=== PATIENT | female | born 1930 | race Caucasian/White ===

== ENCOUNTER 2016-10-02 13:32 | Inpatient (IN) ==
--- NOTE | 2016-10-02 13:50 | Emergency Department Note ---
Disposition Clinical Impression: Colitis Disposition: Admitted As Inpatient Condition: Fair Referrals: NO,PCP [Non-Partnered Physician] - Forms: Work/School Release, ED Satisfaction Letter Time of Disposition: 15:39 Abdominal Pain HPI - General Chief Complaint: ED Abdominal Pain Stated Complaint: Back Pain/ Lower Abdominal Pain Time Seen by Provider: 10/02/16 13:49 Source: patient, EMS Mode of arrival: EMS Limitations: no limitations Nursing Notes Reviewed: Yes Vital Signs Reviewed: Yes - History of Present Illness HPI Narrative: 86-year-old who has been treated by her family doctor for UTI culture did grow Proteus sensitive to everything tested. She has right-sided flank pain that is getting progressively worse. She was treated with 3 separate antibiotics the first 2 she had a reaction to she does not able to remember exactly what their names are she thinks one of Cipro. Then use with symptoms. Pt Subjective Complaint: abdominal pain, flank pain Onset (ago): day(s) Consistency: constant Pain Severity: moderate, severe Pain Scale: 10 Quality: stabbing, aching Radiation: none Migration to: no migration Improves with: nothing Worsens with: movement Associated symptoms: Reports: nausea, vomiting, diarrhea, fever (Claims low- grade fever at home) Treatments prior to arrival: other (Antibiotics) - Related Data Home Medications Medication Instructions Recorded Confirmed Acetylcysteine 600 mg PO BID 08/08/15 08/08/15 [A-Vgrasu-q-Cysteine] Albuterol Sulfate [Albuterol 2 puff IH Q6HR PRN 08/08/15 08/08/15 Inhaler] Budesonide/Formoterol 160/4.5 2 puff IH BIDR 08/08/15 08/08/15 [Symbicort] Cholecalciferol (Vitamin D3) 2,000 unit PO DAILY 08/08/15 08/08/15 [Vitamin D] Clopidogrel [Plavix] 75 mg PO DAILY 08/08/15 08/08/15 Ferrous Sulfate 325 mg PO DAILY 08/08/15 08/08/15 Furosemide [Lasix] 20 mg PO DAILY 08/08/15 08/08/15 Ipratropium/Albuterol Neb [Duoneb] 3 ml IH Q6HR 08/08/15 08/08/15 Metoprolol [Lopressor] 50 mg PO BID 08/08/15 08/08/15 Multivitamin/Iron/Folic Acid 1 each PO DAILY 08/08/15 08/08/15 [Centrum Complete Multivit Tab] Potassium Chloride 40 meq PO DAILY 08/08/15 08/08/15 [place] Oil/[place]-3 Fatty Acids 1,000 mg PO DAILY 08/08/15 08/08/15 [Fish Oil 500 mg Softgel] Sucralfate [Carafate] 1 gm PO QIDAC 08/08/15 08/08/15 Previous Rx's Medication Instructions Recorded Lactobacillus [Culturelle] 1 each PO BID #60 cap.sprink 08/08/15 Ondansetron ODT [Zofran ODT] 4 mg SL Q6HR PRN #14 tab.rapdis 09/21/15 Nitrofurantoin (BID) [Macrobid] 100 mg PO BID #14 capsule 01/23/16 PredniSONE 10 mg PO DAILY #21 tablet 02/08/16 Allergies Allergy/AdvReac Type Severity Reaction Status Date / Time Estrogens AdvReac Anaphylaxis Verified 06/07/15 13:05 Penicillins AdvReac Anaphylaxis Verified 06/07/15 13:05 Sulfa (Sulfonamide AdvReac Anaphylaxis Verified 06/07/15 13:05 Antibiotics) Constitutional: Reports: fever. Denies: chills, weakness, weight change Eyes: Denies: eye pain, eye discharge, vision change ENT ED: Denies: ear pain, throat pain, dental pain, hearing loss, epistaxis, congestion, dysphagia Cardiovascular: Denies: chest pain, palpitations, dyspnea on exertion, edema, syncope Respiratory: Denies: cough, dyspnea, wheezes, hemoptysis, stridor Gastrointestinal: Denies: abdominal pain, nausea, vomiting, diarrhea, constipation, hematemesis, melena, hematochezia Genitourinary: Denies: dysuria, frequency, hematuria, discharge Musculoskeletal: Reports: back pain. Denies: neck pain, arthralgia, myalgia Integumentary: Denies: rash, abrasion, lesions Neurological: Denies: headache, weakness, numbness, paresthesias, confusion, abnormal gait, vertigo Psychiatric: Denies: anxiety, depression, suicidal thoughts, homicidal thoughts , auditory hallucinations, visual hallucinations Endocrine: Denies: fatigue Hematological/Lymphatic: Denies: easy bleeding, easy bruising Allergic/Immunologic: Denies: facial swelling, urticaria Abdominal Pain PMH - Past Medical History Medical history: Reports: cancer, CHF, COPD, coronary artery disease, CVA, hyperlipidemia, hypertension, myocardial infarction, osteoporosis Female Surgical History: Reports: appendectomy, cancer surgery, cholecystectomy , herniorrhaphy, hysterectomy, pacemaker/AICD 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 Psychiatric history: Reports: no psych history - Social History Smoking status: Never smoker Alcohol use: Reports: none Drug use: Reports: none Physical Exam - General Limitations: no limitations General appearance: alert - Head Head exam: atraumatic, normocephalic, normal inspection - Eye Eye exam: Present: normal appearance, PERRL, EOMI - ENT ENT exam: normal exam, normal oropharynx, mucous membranes moist - Neck Neck exam: Present: normal inspection, full ROM, trachea midline - Chest Chest inspection: Present: normal inspection, symmetric chest wall rise - Respiratory Respiratory exam: Present: normal lung sounds bilaterally - Cardiovascular Cardiovascular exam: Present: regular rate, normal rhythm, normal heart sounds - Abdominal Exam Abdominal exam: Present: soft, tenderness (Suprapubic). Absent: guarding, rebound - Extremities Exam Extremities exam: Present: normal inspection, full ROM. Absent: tenderness, pedal edema - Expanded Lower Extremity Exam Neurovascular/Tendon exam: Absent: motor deficit, sensory deficit, tendon deficit Gait: not tested/not observed - Back Exam Back exam: Present: CVA tenderness (R) - Neurological Exam Neurological exam: Present: alert, oriented X3 - Psychiatric Psychiatric exam: Present: normal affect, normal mood - Skin Skin exam: Present: warm, dry, intact, normal color Course - Consultations Consultation #1: Discussed with pharmacy concerning penicillin allergy and treatment of the colitis, Invanz has been reported with cross allergy however it is usually separable to treat. Time: 15:34 Consultation #2: I discussed the case with Dr. Grimes, admit. Time: 15:53 Vital Signs Temperature 98 F 10/02/16 13:34 Pulse Rate 63 10/02/16 13:34 Respiratory Rate 16 10/02/16 13:34 Blood Pressure 142/71 10/02/16 13:34 O2 Sat by Pulse Oximetry 98 10/02/16 13:34 Temperature 98 F 10/02/16 13:34 Pulse Rate 61 10/02/16 15:26 Respiratory Rate 16 10/02/16 15:26 Blood Pressure 130/64 10/02/16 15:26 O2 Sat by Pulse Oximetry 100 10/02/16 15:26 Oxygen Delivery Oxygen Delivery Room Air Abdominal Pain - Lab Data Lab results reviewed: Yes I reviewed the patient's lab results. Result diagrams: 10/02/16 14:01 10/02/16 14:01 Lab Results 10/02/16 10/02/16 10/02/16 Range/Units 14:01 14:01 14:30 WBC 10.9 (4.3-11.1) K/mcL RBC 3.88 (3.82-4.97) M/mcL Hgb 12.3 (11.5-15.4) g/dL Hct 37.2 (35.3-44.9) % MCV 95.9 (83.0-100.0) fL MCH 31.7 (28.0-33.3) pg MCHC 33.1 (31.6-35.5) g/dL RDW 14.1 (11.5-14.5) % Plt Count 214 (140-400) K/mcL MPV 8.9 L (9.4-12.4) fL Immature Gran % 0.6 (0-4) % Seg Neutrophils % 89.5 % Lymphocytes % 4.8 % Monocytes % 3.6 % Eosinophils % 1.2 % Basophils % 0.3 % Neutrophils # 9.7 H (1.6-8.9) K/mcL Lymphocytes # 0.5 L (0.6-4.6) K/mcL Monocytes # 0.4 (0.0-1.3) K/mcL Eosinophils # 0.1 (0.0-0.6) K/mcL Basophils # 0.0 (0.0-0.2) K/mcL Sodium 141 (136-145) mEq/L Potassium 3.7 (3.5-4.5) mEq/L Chloride 108 (98-109) mEq/L Carbon Dioxide 23 (19-29) mEq/L BUN 13 (7-20) mg/dL Creatinine 0.91 (0.57-1.11) mg/dL Est GFR ( Amer) > 60 (> 60) Est GFR (Non-Af Amer) 59 L (> 60) BUN/Creatinine Ratio 14 (6-26) Glucose 137 H (70-99) mg/dL Calculated Osmolality 294 (280-300) Calcium 8.7 (8.6-10.8) mg/dL Total Bilirubin 0.7 (0.2-1.2) mg/dL Direct Bilirubin 0.2 (0.0-0.5) mg/dL Indirect Bilirubin 0.5 (0.0-1.2) mg/dL AST 22 (5-34) Units/L ALT 24 (0-55) Units/L Alkaline Phosphatase 89 (38-126) Units/L Serum Total Protein 6.3 (6.0-8.3) g/dL Albumin 3.1 L (3.5-5.0) g/dL Globulin 3.2 (2.4-3.5) g/dL Albumin/Globulin Ratio 1.0 L (1.1-2.2) Amylase 74 (25-125) Units/L Lipase 92 H (8-78) Units/L Urine Color Kasia A (Yellow) Urine Clarity Clear (Clear) Urine pH 5.5 (5.0-8.0) pH Units Ur Specific Yeoman 1.021 (1.010-1.025) Urine Protein Trace (Neg-Trace) mg/dL Urine Glucose (UA) Normal (Normal) mg/dL Urine Ketones Trace H (Negative) mg/dL Urine Blood Negative (Negative) Urine Nitrite Positive A (Negative) Urine Bilirubin Small H (Negative) Urine Urobilinogen Normal (Normal) mg/dL Ur Leukocyte Esterase Moderate H (Negative) Urine Microscopic RBC 0-3 (0-3) per hpf Urine Microscopic WBC 3-5 H (0-3) per hpf Ur Squamous Epith Cells Few (None-Few) per lpf Calcium Oxalate Crystal Present Urine Bacteria Few (None-Few) per hpf Ur Culture Indicated? YES A (NO) - Radiology Data Radiology results reviewed: Yes I reviewed the patient's radiology results. Abdomen/Pelvis CT 10/02/16 13:48 IMPRESSION: Fluid throughout the colon with left pericolic stranding compatible with colitis. Infectious and inflammatory causes are likely ; ischemia cannot be excluded. Moderate to large hiatal hernia. D/ / Jackelyn Kelly Cha, MD / Jackelyn Kelly Cha, MD Interpreting Provider: Jackelyn Kelly Cha, MD
[2016-10-02 14:13] LABS: Basophils % 0.3 %; Eosinophils # 0.1 K/mcL (0.0-0.6); Eosinophils % 1.2 %; Hematocrit 37.2 % (35.3-44.9); Hemoglobin 12.3 g/dL (11.5-15.4); Immature Granulocytes % 0.6 % (0-4); Lymphocytes # 0.5 K/mcL (0.6-4.6); Lymphocytes % 4.8 %; Mean Corpuscular HGB Conc 33.1 g/dL (31.6-35.5); Mean Corpuscular Hemoglobin 31.7 pg (28.0-33.3); Mean Corpuscular Volume 95.9 fL (83.0-100.0); Mean Platelet Volume 8.9 fL (9.4-12.4); Monocytes # 0.4 K/mcL (0.0-1.3); Monocytes % 3.6 %; Neutrophils # 9.7 K/mcL (1.6-8.9); Platelet Count 214 K/mcL (140-400); Red Blood Count 3.88 M/mcL (3.82-4.97); Red Cell Distribution Width 14.1 % (11.5-14.5); Segmented Neutrophils % 89.5 %
[2016-10-02 14:26] LABS: Alanine Aminotransferase 24 Units/L (0-55); Albumin 3.1 g/dL (3.5-5.0); Alkaline Phosphatase 89 Units/L (38-126); Amylase 74 Units/L (25-125); Aspartate Amino Transferase 22 Units/L (5-34); BUN/Creatinine Ratio 14 (6-26); Bilirubin,Direct 0.2 mg/dL (0.0-0.5); Bilirubin,Indirect 0.5 mg/dL (0.0-1.2); Bilirubin,Total 0.7 mg/dL (0.2-1.2); Blood Urea Nitrogen 13 mg/dL (7-20); Calcium 8.7 mg/dL (8.6-10.8); Carbon Dioxide 23 mEq/L (19-29); Chloride 108 mEq/L (98-109); Globulin 3.2 g/dL (2.4-3.5); Glucose 137 mg/dL (70-99); Lipase 92 Units/L (8-78); Osmolality,Calculated 294 (280-300); Potassium 3.7 mEq/L (3.5-4.5); Sodium 141 mEq/L (136-145); Total Protein 6.3 g/dL (6.0-8.3); eGFR For African Americans > 60 (> 60); eGFR For Non-African Americans 59 (> 60)
[2016-10-02 14:49] LABS: Bilirubin,Urine Small (Negative); Blood,Urine Negative (Negative); Clarity,Urine Clear (Clear); Glucose,Urine (UA) Normal (Normal); Ketones,Urine Trace mg/dL (Negative); Leukocyte Esterase,Urine Moderate (Negative); Nitrite,Urine Positive (Negative); PH,Urine 5.5 pH Units (5.0-8.0); Protein,Urine Trace mg/dL (Neg-Trace); Specific Gravity,Urine 1.021 (1.010-1.025); Urobilinogen,Urine Normal (Normal)
[2016-10-02 14:54] LABS: Color,Urine Amber (Yellow)
[2016-10-02 15:12] LABS: Bacteria,Urine Few per hpf (None-Few); Calcium Oxalate Crystals,Urine Present; RBC,Urine 0-3 per hpf (0-3); Squamous Epithelial Cell,Urine Few per lpf (None-Few)
[2016-10-02] MEDS ORDERED: Ertapenem 1,000 MG in 0.9 % Sodium Chloride Mini Bag 100 ML IVPB STA (15:36)
[2016-10-02] MEDS ORDERED: MetroNIDAZOLE 500 MG/100 ML 500 MG/100 ML BAG IVPB ONE (15:38)
[2016-10-02] MEDS ORDERED: Naloxone 0.4 MG/ML INJ IVP PRN (17:45)
[2016-10-02] MEDS ORDERED: *HR* Metoprolol 5 MG/5 ML VIAL IVP PRN (17:52)
[2016-10-02] MEDS: 0.9 % Sodium Chloride 1,000 ML IVC SCH (18:17)
[2016-10-02] MEDS: Pantoprazole 40 MG VIAL IVP SCH (18:22)
--- NOTE | 2016-10-02 18:54 | Internal Med History&Physical ---
<Gurdeep Neves - Last Filed: 10/02/16 19:05> Date of Encounter: 10/02/16 Time of Encounter: 17:20 Assessment and Plan (1) Abdominal pain Current visit: Yes Status: Acute 2/[address] abdomen/pelvis patient clinically stable, however given numerous comorbidities and age, patient will be monitored in hospital at least over night will obtain blood cultures and urine culture continue ertapenem/flagyl for abdominal coverage tylenol for pain control as patient does not like opiates fluids at 75cc/hr for maintenance NPO for now Qualifiers: Abdominal location: generalized Qualified Code(s): R10.84 - Generalized abdominal pain (2) Urinary tract infection Current visit: Yes Status: Acute patient had dysuria and either failed outpatient antibiotics or had bad reacdtion to antibiotics urine culture and ertapenem for coverage now Qualifiers: Qualified Code(s): N39.0 - Urinary tract infection, site not specified (3) Colitis Current visit: Yes Status: Acute as above (4) Congestive heart failure Current visit: Yes Status: Acute cont home lasix iv, metoprolol convert to iv form Qualifiers: Qualified Code(s): I50.9 - Heart failure, unspecified (5) History of stroke Current visit: Yes Status: Acute cont plavix, some residual R visual field deficit (6) COPD (chronic obstructive pulmonary disease) Current visit: Yes Status: Acute cont home meds Qualifiers: Qualified Code(s): J44.9 - Chronic obstructive pulmonary disease, unspecified (7) DVT prophylaxis Current visit: Yes Status: Acute heparin q12, encourage ambulation Internal Medicine - H&P: HPI Chief complaint: abdominal pain Admitted From: Home Plans for Post Hospital Care: Home History of present illness: Ms. Sanchez is a 86 year old female hx of COPD, CHF, MA, two strokes this year, IBS presents with abdominal pain and dysuria. The abdmoinal pain has been ongoing last 2 weeks, up until 2 days ago patient also having dysuria. It is suprapubic and radiates b/l up her groins and to her back at times flank regions. She has been feeling increasingly ill the last two days. Has had dry heaving but no vomiting. She has had some chronic diarrhea, but more recently some constipation. She was feeling ill enough that she needed to come to the ED here as she has been having much decreased appetite. Of note she has also been treated for UTI in the past month, most recently ~ with cipro and penicillni to which she felt she had a bad reaction. She has had two UTIs in the past month. Past Med Surg Social Fam HX - Past Medical History Medical history: cancer, CHF, COPD, coronary artery disease, CVA, hyperlipidemia , hypertension, myocardial infarction, osteoporosis Psychiatric history: no psych history - Past Surgical History Surgical History: appendectomy, cholecystectomy - Social History Smoking Status: Never smoker Smokeless Tobacco Status: No Alcohol use: none Drug use: none Internal Medicine - H&P: Meds Acetylcysteine [R-Abmcfn-t-Cysteine] 600 mg PO BID 08/08/15 [History] Albuterol Sulfate [Albuterol Inhaler] 2 puff IH Q6HR PRN 08/08/15 [History] Budesonide/Formoterol 160/4.5 [Symbicort] 2 puff IH BIDR 08/08/15 [History] Clopidogrel [Plavix] 75 mg PO DAILY 08/08/15 [History] Ferrous Sulfate 325 mg PO DAILY 08/08/15 [History] Furosemide [Lasix] 40 mg PO BID 08/08/15 [History] Ipratropium/Albuterol Neb [Duoneb] 3 ml IH Q6HR 08/08/15 [History] Metoprolol [Lopressor] 100 mg PO BID 08/08/15 [History] Multivitamin/Iron/Folic Acid [Centrum Complete Multivit Tab] 1 tab PO DAILY 06/14 [History] Potassium Chloride 70 meq PO DAILY 08/08/15 [History] [place] Oil/[place]-3 Fatty Acids [Fish Oil 500 mg Softgel] 1,000 mg PO DAILY 08/08 [History] Sucralfate [Carafate] 1 gm PO QIDAC 08/08/15 [History] Ergocalciferol (VITAMIN D2) [Vitamin D2] 50,000 unit PO GIPSON 10/02/16 [History] Pantoprazole Sodium [Protonix] 20 mg PO DAILY 10/02/16 [History] Pravastatin Sodium [Pravachol] 20 mg PO DAILY 10/02/16 [History] Allergies azithromycin Allergy (Verified 10/02/16 16:47) Hives Calcitonin Allergy (Verified 10/02/16 16:47) Rash Iodinated Contrast Media - Oral and Allergy (Verified 10/02/16 16:47) Rash Penicillins Allergy (Verified 10/02/16 16:38) Hives Sulfa (Sulfonamide Antibiotics) Allergy (Verified 10/02/16 16:38) Hives acetaminophen [From Tylenol] Adverse Reaction (Verified 10/02/16 16:47) Hallucinating aspirin Adverse Reaction (Verified 10/02/16 16:38) See Comments TINNITUS codeine Adverse Reaction (Verified 10/02/16 16:47) Hallucinating Estrogens Adverse Reaction (Verified 10/02/16 16:38) Cramping of the Muscles morphine Adverse Reaction (Verified 10/02/16 16:47) Hallucinating Oxycodone Adverse Reaction (Verified 10/02/16 16:47) Hallucinating tramadol Adverse Reaction (Verified 10/02/16 16:47) Hallucinating All Systems PM: A 10-system review of systems was performed and is negative for pertinent findings except as documented above in the HPI. - Constitutional Constitutional: chills, no fever(s), no night sweats - EENT Eyes: no photophobia Ears: no ear discharge, no ear pain, no tinnitus Nose, mouth and throat: no dysphagia, no nasal discharge, no neck pain, no sore throat - Cardiovascular Cardiovascular ROS IM: no chest pain, no diaphoresis, no lightheadedness, no palpitations, no syncope - Respiratory Respiratory: no cough, no dyspnea, no wheezing, no excessive phlegm production - Gastrointestinal Gastrointestinal: abdominal pain, constipation, diarrhea, nausea, no hematemesis , no hematochezia, no melena, no tenesmus, no vomiting - Genitourinary Genitourinary: change in urinary stream, dysuria, flank pain (on and off), no hematuria - Musculoskeletal Musculoskeletal ROS IM: no numbness, no tingling - Integumentary Integumentary IM: no rash, no unusual bruising - Neurological Neurological ROS: no confusion, no convulsions, no focal weakness, no numbness, no tingling, no tremor(s) - Hematologic/Lymphatic Hematologic/Lymphatic: no easy bruising - Constitutional Vitals: Temp Pulse Resp BP Pulse Ox 98.2 F 61 14 138/78 100 10/02/16 17:02 10/02/16 17:02 10/02/16 17:02 10/02/16 17:02 10/02/16 17:02 General appearance: Present: A&O X 3, answers questions appropriately - Head Head exam: Present: atraumatic, normocephalic - Eye Eye exam: Present: conjuntiva pink, sclera anicteric - Neck Neck exam general surgery: Present: supple, trachea midline. Absent: lymphadenopathy - Respiratory Respiratory exam: Present: CTAB. Absent: accessory muscle use, rales, rhonchi, wheezes - Cardiovascular Cardiovascular exam: Present: RRR, +S1, +S2. Absent: diastolic murmur, gallop, rubs, systolic murmur - GI/Abdominal GI/Abdominal exam: Present: normal bowel sounds, soft, tenderness (generalized and suprapubic), no peritoneal signs. Absent: distended - Extremities Exam Extremities exam: Present: warm, radial pulses palpable and symetrical. Absent : calf tenderness, cyanotic, pedal edema - Neurological Exam Neurological exam: Present: no focal deficits. Absent: facial droop, speech deficit - Skin Skin exam: Present: dry, intact Internal Med - H&P Results - Labs CBC & Chem 7: 10/02/16 14:01 10/02/16 14:01 <Altagracia Quiñones - Last Filed: 10/02/16 20:44> Date of Encounter: 10/02/16 Internal Medicine - H&P: HPI History of present illness: Ms. Sanchez is a 86 year old female All Systems PM: A 10-system review of systems was performed and is negative for pertinent findings except as documented above in the HPI. - Constitutional Vitals: Temp Pulse Resp BP Pulse Ox 97.7 F 60 14 131/89 98 10/02/16 19:52 10/02/16 19:52 10/02/16 19:52 10/02/16 19:52 10/02/16 19:52 Internal Med - H&P Results - Labs CBC & Chem 7: 10/02/16 14:01 10/02/16 14:01 - Attending Attestation Patient was independently seen and examined at bedside. The care plan and management was discussed with the resident physician and I agree with the listed plan. Patient reported of having worsening of symptoms after initiation of her antibiotics. Will follow up cultures and empirically treat with IV abx at this time. Initiate diet in am if clinically improves. Continue IV fluids, pain control.
[2016-10-02] MEDS ORDERED: *HR* Acetylcysteine 20% 600 MG/3 ML ORAL SYRINGE PO SCH (21:00)
[2016-10-02] MEDS: Furosemide 20 MG/2 ML VIAL IVP SCH (21:02)
[2016-10-02] MEDS: Ipratropium/Albuterol Neb 3 ML IH SCH (21:45)
[2016-10-02] MEDS: Budesonide/Formoterol 160/4.5 MDI IH SCH (21:46)
[2016-10-02] MEDS: Acetaminophen 325 MG TABLET PO PRN (22:11)
[2016-10-03] MEDS: MetroNIDAZOLE 500 MG/100 ML 500 MG/100 ML BAG IVPB SCH ×4 (01:08→23:31)
[2016-10-03] MEDS: *HR* Metoprolol 5 MG/5 ML VIAL IVP SCH ×5 (02:00→23:26)
[2016-10-03] MEDS: Ipratropium/Albuterol Neb 3 ML IH SCH ×4 (03:18→20:37)
[2016-10-03] MEDS: 0.9 % Sodium Chloride 1,000 ML IVC SCH (06:30)
[2016-10-03] MEDS: *HR* Heparin 5,000 UNIT/ML VIAL SQ SCH ×2 (06:30→18:48)
[2016-10-03 06:43] LABS: Basophils % 0.3 %; Eosinophils # 0.2 K/mcL (0.0-0.6); Eosinophils % 3.2 %; Hematocrit 32.2 % (35.3-44.9); Immature Granulocytes % 0.3 % (0-4); Lymphocytes % 16.1 %; Mean Corpuscular HGB Conc 32.6 g/dL (31.6-35.5); Mean Corpuscular Hemoglobin 31.2 pg (28.0-33.3); Mean Corpuscular Volume 95.5 fL (83.0-100.0); Mean Platelet Volume 9.2 fL (9.4-12.4); Monocytes # 0.5 K/mcL (0.0-1.3); Monocytes % 8.8 %; Neutrophils # 4.3 K/mcL (1.6-8.9); Platelet Count 195 K/mcL (140-400); Red Blood Count 3.37 M/mcL (3.82-4.97); Red Cell Distribution Width 14.1 % (11.5-14.5); Segmented Neutrophils % 71.3 %
[2016-10-03 06:49] LABS: Hemoglobin 10.5 g/dL (11.5-15.4)
[2016-10-03 06:58] LABS: BUN/Creatinine Ratio 14 (6-26); Blood Urea Nitrogen 11 mg/dL (7-20); Calcium 7.6 mg/dL (8.6-10.8); Carbon Dioxide 26 mEq/L (19-29); Chloride 110 mEq/L (98-109); Glucose 108 mg/dL (70-99); Osmolality,Calculated 296 (280-300); Potassium 3.2 mEq/L (3.5-4.5); Sodium 143 mEq/L (136-145); eGFR For African Americans > 60 (> 60); eGFR For Non-African Americans > 60 (> 60)
[2016-10-03] MEDS: Pantoprazole 40 MG VIAL IVP SCH (08:39)
[2016-10-03] MEDS: Furosemide 20 MG/2 ML VIAL IVP SCH ×2 (08:39→21:22)
[2016-10-03] MEDS: D5% in 0.45% NACL w KCl 20 MEQ/1,000 ML MLS IVC SCH (08:50)
[2016-10-03] MEDS: Acetaminophen 325 MG TABLET PO PRN (10:14)
[2016-10-03] MEDS: Budesonide/Formoterol 160/4.5 MDI IH SCH ×2 (10:57→20:37)
[2016-10-03] MEDS: Acetylcysteine 10% 2 ML INHSOL IH SCH ×2 (10:58→20:37)
--- NOTE | 2016-10-03 15:29 | Internal Med Progress Note ---
Date of Encounter: 10/03/16 Time of Encounter: 10:45 - Assessment and plan (1) Abdominal pain Current Visit: Yes Status: Acute Assessment and plan: Due to colitis. Continue IV antibiotics. Clinically improving. We will advance diet to clear liquids today. Qualifiers: Abdominal location: generalized Qualified Code(s): R10.84 - Generalized abdominal pain (2) COPD (chronic obstructive pulmonary disease) Current Visit: Yes Status: Chronic Assessment and plan: Chronic. Continue albuterol inhaler when necessary. Qualifiers: COPD type: unspecified COPD Qualified Code(s): J44.9 - Chronic obstructive pulmonary disease, unspecified (3) Colitis Current Visit: Yes Status: Acute Assessment and plan: On IV antibiotics. (4) Congestive heart failure Current Visit: Yes Status: Chronic Assessment and plan: Chronic. On IV Lasix as patient was nothing by mouth. If tolerates clears, will change to by mouth Lasix. Not in acute exacerbation. Qualifiers: Congestive heart failure type: unspecified congestive heart failure type Congestive heart failure chronicity: chronic Qualified Code(s): I50.9 - Heart failure, unspecified (5) DVT prophylaxis Current Visit: Yes Status: Acute Assessment and plan: On subcutaneous heparin (6) History of stroke Current Visit: Yes Status: Acute Assessment and plan: Resume Plavix and statin. (7) Urinary tract infection Current Visit: Yes Status: Acute Assessment and plan: Patient's urine is growing gram-positive cocci. On IV antibiotics. Will follow culture results. Qualifiers: Urinary tract infection type: acute cystitis Hematuria presence: without hematuria Qualified Code(s): N30.00 - Acute cystitis without hematuria - Subjective Interval history: Patient feels much better today. Abdominal pain is improving. Has not had any bowel movements. Denies any nausea or vomiting. - Constitutional Vitals: Temp Pulse Resp BP Pulse Ox 97.9 F 60 14 106/66 95 10/03/16 11:10 10/03/16 11:10 10/03/16 11:10 10/03/16 11:10 10/03/16 11:10 General appearance: Present: cooperative, mild distress, A&O X 3, pleasant, answers questions appropriately - Eye Eye exam: Present: PERRL, conjuntiva pink, sclera anicteric Pupils: Present: PERRL - Respiratory Respiratory exam: Present: CTAB. Absent: accessory muscle use, rales, rhonchi, wheezes - Cardiovascular Cardiovascular exam: Present: RRR, +S1, +S2. Absent: diastolic murmur, gallop, rubs, systolic murmur - GI/Abdominal GI/Abdominal exam: Present: normal bowel sounds, soft, tenderness (Mild left lower quadrant), no peritoneal signs. Absent: distended - Neurological Exam Neurological exam: Present: CN II-XII intact, oriented X3, no focal deficits, strengths equal and symetr throughout. Absent: facial droop, speech deficit - Skin Skin exam: Present: dry, intact Internal Medicine: Result - Labs CBC & Chem 7: 10/03/16 06:13 10/03/16 06:13 Consult Discharge Plan - Plan Referrals: Shreyas Mera MD [Primary Care Provider] - - Attending Attestation This document has been at least partially created by [employer] recognition technology by Dr. Meadows. Errors in grammar, wording or other phrases may exist. If errors are found after the documentation is signed, they will be addressed individually in the addendum section of this document when appropriate. Medical Decision Making - MDM Narrative Medical decision making narrative: Moderate risk for complications - Lab Data Lab results reviewed: Yes I reviewed the patient's lab results. Result diagrams: 10/03/16 06:13 10/03/16 06:13 Lab Results 10/03/16 Range/Units 12:13 POC Glucose 107 H (58-89)
[2016-10-03] MEDS: Ertapenem 1,000 MG in 0.9 % Sodium Chloride Mini Bag 100 ML IVPB SCH (16:03)
--- NOTE | 2016-10-03 16:11 | ECHO - Doppler Report ---
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 Indications: Heart failure Impressions: LVEF 60%. Normal LV chamber size, wall thickness and function. Indeterminate diastolic function. Atypical septal motion consistent with paced rhythm. Normal right ventricular structure and function. No evidence of pulmonary hypertension. There is a very small pericardial effusion present. There is no echocardiographic evidence of tamponade. A device lead was visualized in the right atrium and right ventricle. No significant valvular dysfunction. Left Ventricular Wall Motion: Rest Echo Findings All wall segments showed normal motion. Findings: Study Quality * Technically adequate exam. ECG Findings * Paced rhythm. Left Ventricle * LVEF 60%. * Normal LV chamber size, wall thickness and function. * Indeterminate diastolic function. * Atypical septal motion consistent with paced rhythm. Right Ventricle * Normal right ventricular structure and function. Left Atrium * Moderately dilated left atrium. Right Atrium * Mildly dilated right atrium. Aortic Valve * Aortic valve not well visualized. * Grossly, the aortic valve does appear calcified. * Trace aortic regurgitation. * No aortic stenosis. Mitral Valve * Mild mitral annular calcification * No mitral regurgitation. * No mitral stenosis. Tricuspid Valve * Normal tricuspid valve structure. * Trace tricuspid regurgitation. * No evidence of pulmonary hypertension. Pulmonic Valve * Pulmonic valve not well visualized. * No pulmonic regurgitation. Aorta * Normally sized aortic root. Pericardium * There is a very small pericardial effusion present. * There is no echocardiographic evidence of tamponade. IVC * The IVC is not well evaluated. Device lead * A device lead was visualized in the right atrium and right ventricle. Pulmonary Artery * Normal visualized portions of the main pulmonary artery. History Hypertension Hypercholesteremia Rheumatic Fever History of CAD/PTCA Myocardial Infarction Congestive Heart Failure Pacer/ICD Implant 09/14/14 a Previous Echo was performed. Measurements: BP: 106/ 66 2D Normal Values RVIDd: 3.10 cm <2.7 cm IVSd: .80 cm 0.6 - 1.0 cm LVIDd: 5.40 cm 3.7 - 5.6 cm LVPWd: .80 cm 0.6 - 1.1 cm LVIDs: 4.90 cm 1.5 - 3.6 cm AO: 3.10 cm < 4.0 cm LA: 4.50 cm 2.0 - 4.0cm %FS: 16.90 cm >25 % LA volume: 86 Mitral Valve Peak E:1.14 m/sec Peak E' Lat Brayden:16.1 cm/s Peak E' Med Brayden:8.9 cm/s E/E' Lat Ratio:7.1 E/E' Med Ratio:12.7 Aortic Valve AI pressure Half-time: 563.00 msec Tricuspid Valve TV Regurg Peak Grad: 26.00mmHg TV Regurg Peak Brayden: 2.54m/sec Updated by Corey Gandhi DO, GLYNN, ODETTE ROB on 10/03/2016 4:06:43 PM electronically signed on 10/03/2016 4:07:08 PM with status of Final Wall Motion Mayes: 1=Normal, 2=Hypokinesis, 3=Akinesis, 4=Dyskinesis, 5=Aneurysmal, 6=Hyperkinetic, X=Not Visualized (Blank)=Missing
[2016-10-03] MEDS: Ondansetron 4 MG/2 ML VIAL IVP PRN (21:22)
[2016-10-04] MEDS: D5% in 0.45% NACL w KCl 20 MEQ/1,000 ML MLS IVC SCH ×2 (03:52→18:36)
[2016-10-04] MEDS: Ipratropium/Albuterol Neb 3 ML IH SCH ×4 (04:14→21:29)
[2016-10-04 05:08] LABS: Basophils % 0.4 %; Eosinophils # 0.2 K/mcL (0.0-0.6); Eosinophils % 3.5 %; Hematocrit 34.1 % (35.3-44.9); Hemoglobin 11.2 g/dL (11.5-15.4); Immature Granulocytes % 0.2 % (0-4); Lymphocytes # 0.9 K/mcL (0.6-4.6); Lymphocytes % 17.7 %; Mean Corpuscular HGB Conc 32.8 g/dL (31.6-35.5); Mean Corpuscular Hemoglobin 31.4 pg (28.0-33.3); Mean Corpuscular Volume 95.5 fL (83.0-100.0); Mean Platelet Volume 9.3 fL (9.4-12.4); Monocytes # 0.5 K/mcL (0.0-1.3); Monocytes % 10.3 %; Neutrophils # 3.5 K/mcL (1.6-8.9); Platelet Count 198 K/mcL (140-400); Red Blood Count 3.57 M/mcL (3.82-4.97); Segmented Neutrophils % 67.9 %
[2016-10-04 05:23] LABS: BUN/Creatinine Ratio 12 (6-26); Blood Urea Nitrogen 9 mg/dL (7-20); Calcium 7.7 mg/dL (8.6-10.8); Carbon Dioxide 26 mEq/L (19-29); Chloride 110 mEq/L (98-109); Glucose 121 mg/dL (70-99); Osmolality,Calculated 296 (280-300); Potassium 3.4 mEq/L (3.5-4.5); Sodium 143 mEq/L (136-145); eGFR For African Americans > 60 (> 60); eGFR For Non-African Americans > 60 (> 60)
[2016-10-04] MEDS: *HR* Heparin 5,000 UNIT/ML VIAL SQ SCH ×2 (05:38→18:36)
[2016-10-04] MEDS: *HR* Metoprolol 5 MG/5 ML VIAL IVP SCH ×2 (05:38→12:24)
[2016-10-04] MEDS: Budesonide/Formoterol 160/4.5 MDI IH SCH ×2 (07:38→21:29)
[2016-10-04] MEDS: Acetylcysteine 10% 2 ML INHSOL IH SCH ×2 (08:04→21:29)
[2016-10-04] MEDS ORDERED: Vancomycin 1,250 MG in D5% in Water 250 ML IVPB SCH (09:00)
[2016-10-04] MEDS: Furosemide 20 MG/2 ML VIAL IVP SCH (09:17)
[2016-10-04] MEDS: Pantoprazole 40 MG VIAL IVP SCH (09:17)
[2016-10-04] MEDS: MetroNIDAZOLE 500 MG/100 ML 500 MG/100 ML BAG IVPB SCH ×3 (09:18→23:55)
[2016-10-04] MEDS: Ondansetron 4 MG/2 ML VIAL IVP PRN (15:28)
[2016-10-04] MEDS: Ertapenem 1,000 MG in 0.9 % Sodium Chloride Mini Bag 100 ML IVPB SCH (15:31)
[2016-10-04] MEDS: Nitrofurantoin (BID) 100 MG CAPSULE PO SCH (15:32)
--- NOTE | 2016-10-04 16:25 | Internal Med Progress Note ---
Date of Encounter: 10/04/16 Time of Encounter: 09:00 - Assessment and plan (1) Abdominal pain Current Visit: Yes Status: Acute Assessment and plan: Due to acute colitis. Improving. Will advance diet today. Continue supportive care with pain medications. Qualifiers: Abdominal location: left lower quadrant Qualified Code(s): R10.32 - Left lower quadrant pain (2) COPD (chronic obstructive pulmonary disease) Current Visit: Yes Status: Chronic Assessment and plan: Not in acute exacerbation. Continue albuterol inhaler Qualifiers: COPD type: unspecified COPD Qualified Code(s): J44.9 - Chronic obstructive pulmonary disease, unspecified (3) Colitis Current Visit: Yes Status: Acute Assessment and plan: Continue IV antibiotics. (4) Congestive heart failure Current Visit: Yes Status: Chronic Assessment and plan: Change Lasix to by mouth. Not in acute failure. Qualifiers: Congestive heart failure type: unspecified congestive heart failure type Congestive heart failure chronicity: chronic Qualified Code(s): I50.9 - Heart failure, unspecified (5) DVT prophylaxis Current Visit: Yes Status: Acute (6) History of stroke Current Visit: Yes Status: Acute (7) Urinary tract infection Current Visit: Yes Status: Acute Assessment and plan: Patient's urine culture is growing staph epidermidis. Most likely contaminant. However patient was having dysuria and this is the only organism that has been identified. Will treat with short course of Macrobid. Patient is also on ertapenem which should cover gram-negative bacteria. Qualifiers: Urinary tract infection type: acute cystitis Hematuria presence: without hematuria Qualified Code(s): N30.00 - Acute cystitis without hematuria - Subjective Interval history: Lower left quadrant Abdominal pain is intermittent. Feels hungry. No fever, chills reported overnight. Also complains of constipation. - Constitutional Vitals: Temp Pulse Resp BP Pulse Ox 97.3 F L 64 17 132/85 99 10/04/16 11:57 10/04/16 11:57 10/04/16 11:57 10/04/16 11:57 10/04/16 11:57 General appearance: Present: cooperative, mild distress, A&O X 3, pleasant, answers questions appropriately - Respiratory Respiratory exam: Present: CTAB. Absent: accessory muscle use, rales, rhonchi, wheezes - Cardiovascular Cardiovascular exam: Present: RRR, +S1, +S2. Absent: diastolic murmur, gallop, rubs, systolic murmur - GI/Abdominal GI/Abdominal exam: Present: normal bowel sounds, soft, tenderness (Mild left lower quadrant), no peritoneal signs. Absent: distended - Extremities Exam Extremities exam: Present: full ROM, warm, radial pulses palpable and symetrical. Absent: calf tenderness, cyanotic, pedal edema - Neurological Exam Neurological exam: Present: oriented X3, no focal deficits. Absent: facial droop, speech deficit Internal Medicine: Result - Labs CBC & Chem 7: 10/04/16 04:05 10/04/16 04:05 Labs: Short CBC 10/04/16 Range/Units 04:05 WBC 5.1 (4.3-11.1) K/mcL Hgb 11.2 L (11.5-15.4) g/dL Hct 34.1 L (35.3-44.9) % Plt Count 198 (140-400) K/mcL Neutrophils # 3.5 (1.6-8.9) K/mcL BMP 10/04/16 04:05 Sodium 143 Potassium 3.4 L Chloride 110 H Carbon Dioxide 26 BUN 9 Creatinine 0.77 Glucose 121 H Calcium 7.7 L - VTE Documentation of Mechanical Device: Intermittent pneumatic compression device Consult Discharge Plan - Plan Referrals: Shreyas Mera MD [Primary Care Provider] - - Attending Attestation This document has been at least partially created by [employer] voice recognition technology by Dr. Meadows. Errors in grammar, wording or other phrases may exist. If errors are found after the documentation is signed, they will be addressed individually in the addendum section of this document when appropriate. Medical Decision Making - MDM Narrative Medical decision making narrative: Moderate risk for complications - Lab Data Lab results reviewed: Yes I reviewed the patient's lab results. Result diagrams: 10/04/16 04:05 10/04/16 04:05 Lab Results 10/03/16 10/03/16 10/04/16 Range/Units 12:13 17:42 00:05 WBC (4.3-11.1) K/mcL RBC (3.82-4.97) M/mcL Hgb (11.5-15.4) g/dL Hct (35.3-44.9) % MCV (83.0-100.0) fL MCH (28.0-33.3) pg MCHC (31.6-35.5) g/dL RDW (11.5-14.5) % Plt Count (140-400) K/mcL MPV (9.4-12.4) fL Immature Gran % (0-4) % Seg Neutrophils % % Lymphocytes % % Monocytes % % Eosinophils % % Basophils % % Neutrophils # (1.6-8.9) K/mcL Lymphocytes # (0.6-4.6) K/mcL Monocytes # (0.0-1.3) K/mcL Eosinophils # (0.0-0.6) K/mcL Basophils # (0.0-0.2) K/mcL Sodium (136-145) mEq/L Potassium (3.5-4.5) mEq/L Chloride (98-109) mEq/L Carbon Dioxide (19-29) mEq/L BUN (7-20) mg/dL Creatinine (0.57-1.11) mg/dL Est GFR ( Amer) (> 60) Est GFR (Non-Af Amer) (> 60) BUN/Creatinine Ratio (6-26) Glucose (70-99) mg/dL POC Glucose 107 H 102 H 119 H (58-89) Calculated Osmolality (280-300) Calcium (8.6-10.8) mg/dL 10/04/16 10/04/16 10/04/16 Range/Units 04:05 04:05 05:42 WBC 5.1 (4.3-11.1) K/mcL RBC 3.57 L (3.82-4.97) M/mcL Hgb 11.2 L (11.5-15.4) g/dL Hct 34.1 L (35.3-44.9) % MCV 95.5 (83.0-100.0) fL MCH 31.4 (28.0-33.3) pg MCHC 32.8 (31.6-35.5) g/dL RDW 14.0 (11.5-14.5) % Plt Count 198 (140-400) K/mcL MPV 9.3 L (9.4-12.4) fL Immature Gran % 0.2 (0-4) % Seg Neutrophils % 67.9 % Lymphocytes % 17.7 % Monocytes % 10.3 % Eosinophils % 3.5 % Basophils % 0.4 % Neutrophils # 3.5 (1.6-8.9) K/mcL Lymphocytes # 0.9 (0.6-4.6) K/mcL Monocytes # 0.5 (0.0-1.3) K/mcL Eosinophils # 0.2 (0.0-0.6) K/mcL Basophils # 0.0 (0.0-0.2) K/mcL Sodium 143 (136-145) mEq/L Potassium 3.4 L (3.5-4.5) mEq/L Chloride 110 H (98-109) mEq/L Carbon Dioxide 26 (19-29) mEq/L BUN 9 (7-20) mg/dL Creatinine 0.77 (0.57-1.11) mg/dL Est GFR ( Amer) > 60 (> 60) Est GFR (Non-Af Amer) > 60 (> 60) BUN/Creatinine Ratio 12 (6-26) Glucose 121 H (70-99) mg/dL POC Glucose 143 H (58-89) Calculated Osmolality 296 (280-300) Calcium 7.7 L (8.6-10.8) mg/dL
[2016-10-04] MEDS: Furosemide 20 MG TABLET PO SCH (18:35)
[2016-10-05] MEDS: Ipratropium/Albuterol Neb 3 ML IH SCH ×2 (03:49→11:36)
[2016-10-05] MEDS: *HR* Heparin 5,000 UNIT/ML VIAL SQ SCH (05:42)
[2016-10-05] MEDS: D5% in 0.45% NACL w KCl 20 MEQ/1,000 ML MLS IVC SCH (07:47)
[2016-10-05] MEDS: MetroNIDAZOLE 500 MG/100 ML 500 MG/100 ML BAG IVPB SCH (07:58)
[2016-10-05] MEDS: Pantoprazole 40 MG VIAL IVP SCH (07:59)
[2016-10-05] MEDS: Nitrofurantoin (BID) 100 MG CAPSULE PO SCH (08:01)
[2016-10-05] MEDS: Furosemide 20 MG TABLET PO SCH (08:04)
[2016-10-05 10:33] VITALS: BP 126/75
--- NOTE | 2016-10-05 10:54 | Discharge Summary ---
Date of Encounter: 10/05/16 Time of Encounter: 10:30 - Discharge Diagnosis (1) Colitis Priority: Primary Status: Acute (2) Abdominal pain Priority: Secondary Status: Acute Qualifiers: Abdominal location: left lower quadrant Qualified Code(s): R10.32 - Left lower quadrant pain (3) COPD (chronic obstructive pulmonary disease) Priority: Secondary Status: Chronic Qualifiers: COPD type: unspecified COPD Qualified Code(s): J44.9 - Chronic obstructive pulmonary disease, unspecified (4) Congestive heart failure Priority: Secondary Status: Chronic Qualifiers: Congestive heart failure type: unspecified congestive heart failure type Congestive heart failure chronicity: chronic Qualified Code(s): I50.9 - Heart failure, unspecified (5) DVT prophylaxis Priority: Secondary Status: Acute (6) History of stroke Priority: Secondary Status: Acute (7) Urinary tract infection Priority: Secondary Status: Acute Qualifiers: Urinary tract infection type: acute cystitis Hematuria presence: without hematuria Qualified Code(s): N30.00 - Acute cystitis without hematuria - Discharge Medications Prescriptions: Metoclopramide [Reglan] 5 mg PO Q6HR PRN #30 tablet PRN Reason: Nausea Levofloxacin [Levaquin] 500 mg PO DAILY #7 tablet MetroNIDAZOLE [Flagyl] 500 mg PO TID #14 tablet Nitrofurantoin (BID) [Macrobid] 100 mg PO BIDWM #6 capsule Home Medications: Acetylcysteine [V-Kqjmpu-a-Cysteine] 600 mg PO BID 08/08/15 [History] Albuterol Sulfate [Albuterol Inhaler] 2 puff IH Q6HR PRN 08/08/15 [History] Budesonide/Formoterol 160/4.5 [Symbicort] 2 puff IH BIDR 08/08/15 [History] Clopidogrel [Plavix] 75 mg PO DAILY 08/08/15 [History] Ferrous Sulfate 325 mg PO DAILY 08/08/15 [History] Furosemide [Lasix] 40 mg PO BID 08/08/15 [History] Ipratropium/Albuterol Neb [Duoneb] 3 ml IH Q6HR 08/08/15 [History] Metoprolol [Lopressor] 100 mg PO BID 08/08/15 [History] Multivitamin/Iron/Folic Acid [Centrum Complete Multivit Tab] 1 tab PO DAILY 06/14 [History] Potassium Chloride 70 meq PO DAILY 08/08/15 [History] [place] Oil/[place]-3 Fatty Acids [Fish Oil 500 mg Softgel] 1,000 mg PO DAILY 08/08 [History] Sucralfate [Carafate] 1 gm PO QIDAC 08/08/15 [History] Ergocalciferol (VITAMIN D2) [Vitamin D2] 50,000 unit PO GIPSON 10/02/16 [History] Pantoprazole Sodium [Protonix] 20 mg PO DAILY 10/02/16 [History] Pravastatin Sodium [Pravachol] 20 mg PO DAILY 10/02/16 [History] Levofloxacin [Levaquin] 500 mg PO DAILY #7 tablet 10/05/16 [Rx] Metoclopramide [Reglan] 5 mg PO Q6HR PRN #30 tablet 10/05/16 [Rx] MetroNIDAZOLE [Flagyl] 500 mg PO TID #14 tablet 10/05/16 [Rx] Nitrofurantoin (BID) [Macrobid] 100 mg PO BIDWM #6 capsule 10/05/16 [Rx] Allergies/Adverse Reactions: Allergies azithromycin Allergy (Verified 10/02/16 16:47) Hives Calcitonin Allergy (Verified 10/02/16 16:47) Rash Iodinated Contrast Media - Oral and Allergy (Verified 10/02/16 16:47) Rash Penicillins Allergy (Verified 10/02/16 16:38) Hives Sulfa (Sulfonamide Antibiotics) Allergy (Verified 10/02/16 16:38) Hives acetaminophen [From Tylenol] Adverse Reaction (Verified 10/02/16 16:47) Hallucinating aspirin Adverse Reaction (Verified 10/02/16 16:38) See Comments TINNITUS codeine Adverse Reaction (Verified 10/02/16 16:47) Hallucinating Estrogens Adverse Reaction (Verified 10/02/16 16:38) Cramping of the Muscles morphine Adverse Reaction (Verified 10/02/16 16:47) Hallucinating Oxycodone Adverse Reaction (Verified 10/02/16 16:47) Hallucinating tramadol Adverse Reaction (Verified 10/02/16 16:47) Hallucinating Date of admission: 10/03/16 11:55 Primary care physician: Shreyas Mera MD Consults: 10/04/16 08:46 Consult to Occupational Therapy [CONS] Routine Comment: Evaluate, develop and implement POC Consult to Physical Therapy [CONS] Routine Comment: Evaluate, develop and implement POC Discharging clinician: Gabbi Meadows Anticipated date of discharge: 10/05/16 - Patient Status Disposition: Home Health Service Condition: Good Functional capacity at discharge: uses cane/walker Overall status at discharge: patient is progressing back to baseline - Discharge Instructions Instructions: Urinary Tract Infection in Women (DC) Follow Up With: Shreyas Mera MD [Primary Care Provider] - 10/12/16 9:45 am (in 1 week) Hospital course: Ms. Sanchez is a 86 year old female patient who has history of previous stroke, congestive heart failure, COPD was admitted here with acute colitis and lower abdominal pain. She was treated with intravenous antibiotics for this. She has slowly improved and is now tolerating full liquid diet well. Her abdominal pain is improving. She did not have any leukocytosis or signs of sepsis. She does not have any diarrhea. At this time she is stable to be discharged home on oral antibiotics to complete treatment course. She was evaluated by physical therapy and recommended placement to retirement facility. However patient has refused this and wishes to go home. Patient already has home health that arranged. She does continue to have heartburn and nausea. She is on PPI and Carafate and I will start her on Reglan as needed for nausea. She also had dysuria on presentation and her urine culture was positive for staph epidermidis. Although this is most likely a contaminant, given the symptoms that the patient presented with, I will treat this with a short course of Macrobid. She will also complete antibiotic course for her colitis. - Time Spent with Patient Total time spent providing and/or coordinating discharge services: Greater than 30 minutes (35 min) - Constitutional Vitals: Temp Pulse Resp BP Pulse Ox 98.2 F 62 17 126/75 98 10/05/16 10:31 10/05/16 10:31 10/05/16 10:31 10/05/16 10:31 10/05/16 10:31 General appearance: Present: cooperative, A&O X 3, pleasant, no acute distress, answers questions appropriately - Respiratory Respiratory exam: Present: CTAB. Absent: accessory muscle use, rales, rhonchi, wheezes - Cardiovascular Cardiovascular exam: Present: RRR, +S1, +S2. Absent: diastolic murmur, gallop, rubs, systolic murmur - GI/Abdominal GI/Abdominal exam: Present: normal bowel sounds, soft, no peritoneal signs. Absent: distended, tenderness - Extremities Exam Extremities exam: Present: warm, radial pulses palpable and symetrical. Absent : calf tenderness, cyanotic, pedal edema - Neurological Exam Neurological exam: Present: CN II-XII intact, oriented X3, no focal deficits. Absent: facial droop, speech deficit - VTE Documentation of Mechanical Device: Intermittent pneumatic compression device - Attending Attestation This document has been at least partially created by [employer] recognition technology by Dr. Meadows. Errors in grammar, wording or other phrases may exist. If errors are found after the documentation is signed, they will be addressed individually in the addendum section of this document when appropriate.
--- NOTE | 2016-10-05 11:11 | Physician Discharge Referral ---
Home Health/Hosp Referral Info Transfer to: Home Health Provider in Charge Post Discharge: PCP - Diagnosis (1) Colitis Priority: Primary Status: Acute (2) Abdominal pain Priority: Secondary Status: Acute (3) COPD (chronic obstructive pulmonary disease) Priority: Secondary Status: Chronic (4) Congestive heart failure Priority: Secondary Status: Chronic (5) DVT prophylaxis Priority: Secondary Status: Acute (6) History of stroke Priority: Secondary Status: Acute (7) Urinary tract infection Priority: Secondary Status: Acute - Respiratory Orders Smoking Cessation: Smoking cessation has been advised. For more information, call the [place] Tobacco Quit Line at 9-169-DQSN-NOW. - Diet/Nutrition Diet/Nutrition Orders: Mechanical Soft - Activity Activity Orders: Walker - Services Needed Following services are medically necessary services: Nursing, Home Health Aide, Physical Therapy, Occupational Therapy - Transfer Medications Prescriptions: Metoclopramide [Reglan] 5 mg PO Q6HR PRN #30 tablet PRN Reason: Nausea Levofloxacin [Levaquin] 500 mg PO DAILY #7 tablet MetroNIDAZOLE [Flagyl] 500 mg PO TID #14 tablet Nitrofurantoin (BID) [Macrobid] 100 mg PO BIDWM #6 capsule Home Medications: Acetylcysteine [J-Kgzcpe-k-Cysteine] 600 mg PO BID 08/08/15 [History] Albuterol Sulfate [Albuterol Inhaler] 2 puff IH Q6HR PRN 08/08/15 [History] Budesonide/Formoterol 160/4.5 [Symbicort] 2 puff IH BIDR 08/08/15 [History] Clopidogrel [Plavix] 75 mg PO DAILY 08/08/15 [History] Ferrous Sulfate 325 mg PO DAILY 08/08/15 [History] Furosemide [Lasix] 40 mg PO BID 08/08/15 [History] Ipratropium/Albuterol Neb [Duoneb] 3 ml IH Q6HR 08/08/15 [History] Metoprolol [Lopressor] 100 mg PO BID 08/08/15 [History] Multivitamin/Iron/Folic Acid [Centrum Complete Multivit Tab] 1 tab PO DAILY 06/14 [History] Potassium Chloride 70 meq PO DAILY 08/08/15 [History] [place] Oil/[place]-3 Fatty Acids [Fish Oil 500 mg Softgel] 1,000 mg PO DAILY 08/08 [History] Sucralfate [Carafate] 1 gm PO QIDAC 08/08/15 [History] Ergocalciferol (VITAMIN D2) [Vitamin D2] 50,000 unit PO GIPSON 10/02/16 [History] Pantoprazole Sodium [Protonix] 20 mg PO DAILY 10/02/16 [History] Pravastatin Sodium [Pravachol] 20 mg PO DAILY 10/02/16 [History] Levofloxacin [Levaquin] 500 mg PO DAILY #7 tablet 10/05/16 [Rx] Metoclopramide [Reglan] 5 mg PO Q6HR PRN #30 tablet 10/05/16 [Rx] MetroNIDAZOLE [Flagyl] 500 mg PO TID #14 tablet 10/05/16 [Rx] Nitrofurantoin (BID) [Macrobid] 100 mg PO BIDWM #6 capsule 10/05/16 [Rx] Allergies/Adverse Reactions: Allergies azithromycin Allergy (Verified 10/02/16 16:47) Hives Calcitonin Allergy (Verified 10/02/16 16:47) Rash Iodinated Contrast Media - Oral and Allergy (Verified 10/02/16 16:47) Rash Penicillins Allergy (Verified 10/02/16 16:38) Hives Sulfa (Sulfonamide Antibiotics) Allergy (Verified 10/02/16 16:38) Hives acetaminophen [From Tylenol] Adverse Reaction (Verified 10/02/16 16:47) Hallucinating aspirin Adverse Reaction (Verified 10/02/16 16:38) See Comments TINNITUS codeine Adverse Reaction (Verified 10/02/16 16:47) Hallucinating Estrogens Adverse Reaction (Verified 10/02/16 16:38) Cramping of the Muscles morphine Adverse Reaction (Verified 10/02/16 16:47) Hallucinating Oxycodone Adverse Reaction (Verified 10/02/16 16:47) Hallucinating tramadol Adverse Reaction (Verified 10/02/16 16:47) Hallucinating Certification: Further, I certify that my clinical findings support that this patient is homebound (i.e. absences from home require considerable and taxing effort and are for medical reasons or restorationism services or infrequently or short duration when for other reasons) because: Homebound Reason: Patient requires assistance of a person or device to safely leave home, Leaving home requires considerable and taxing effort due to condition Attestation: My signature below is to certify that this patient is under my care and that I, or nurse practitioner, or a physician's equity sales assistant working with me, has a face-to -face encounter with this patient.
[2016-10-05] MEDS: Budesonide/Formoterol 160/4.5 MDI IH SCH (11:36)
[2016-10-05] MEDS: Acetylcysteine 10% 2 ML INHSOL IH SCH (11:36)
[2016-10-05] MEDS ORDERED: Aminoglycoside Consult 1 EACH MC ONE (14:00)
== END 2016-10-05 14:01 | disposition home health service (06) | DRG 392 ==
LOC: 3ANU 13:32 → EMEROO 13:32 → 3ANU 16:39
PROVIDERS: ADMIT Internal Medicine; ATTEND Internal Medicine

== ENCOUNTER 2017-02-28 23:37 | Inpatient (IN) ==
--- NOTE | 2017-03-01 02:03 | Emergency Department Note ---
Disposition Clinical Impression: Left hip pain Lumbar compression fracture Qualifiers: Encounter type: initial encounter Fracture type: closed Qualified Code(s): S32.000A - Wedge compression fracture of unspecified lumbar vertebra, initial encounter for closed fracture Disposition: Admitted As Inpatient Condition: Good Time of Disposition: 04:43 Fall HPI - General Chief Complaint: ED Fall Stated Complaint: fall/lower back pain and right hip Time Seen by Provider: 03/01/17 00:45 Source: patient Nursing Notes Reviewed: Yes Vital Signs Reviewed: Yes - History of Present Illness Pt Subjective Complaint: fall Onset (ago): hour(s) Fall From: standing Fall Witnessed: no Place Fall Occurred: home Loss of Consciousness: none Prolonged Down Time?: no Symptoms Prior to Fall: other (exhausted legs) Context: other (increase amount of walking this week) Location of injury: back, hip Severity: none Associated symptoms (after fall): Reports: neck pain, other (bacl [aom ) - Related Data Home Medications Medication Instructions Recorded Confirmed Albuterol Sulfate [Albuterol 2 puff IH Q6HR PRN 08/08/15 02/20/17 Inhaler] Budesonide/Formoterol 160/4.5 2 puff IH BIDR 08/08/15 02/20/17 [Symbicort] Clopidogrel [Plavix] 75 mg PO DAILY 08/08/15 02/20/17 Ferrous Sulfate 325 mg PO DAILY 08/08/15 02/20/17 Furosemide [Lasix] 40 mg PO BID 08/08/15 02/20/17 Metoprolol [Lopressor] 50 mg PO BID 08/08/15 02/20/17 Multivitamin/Iron/Folic Acid 1 tab PO DAILY 08/08/15 02/20/17 [Centrum Complete Multivit Tab] Potassium Chloride 70 meq PO DAILY 08/08/15 02/20/17 [place] Oil/[place]-3 Fatty Acids 1,000 mg PO DAILY 08/08/15 02/20/17 [Fish Oil 500 mg Softgel] Sucralfate [Carafate] 1 gm PO QIDAC 08/08/15 02/20/17 Ergocalciferol (VITAMIN D2) 50,000 unit PO GIPSON 10/02/16 02/20/17 [Vitamin D2] Pantoprazole Sodium [Protonix] 20 mg PO DAILY 10/02/16 02/20/17 Pravastatin Sodium [Pravachol] 20 mg PO DAILY 10/02/16 02/20/17 Previous Rx's Medication Instructions Recorded Metoclopramide [Reglan] 5 mg PO Q6HR PRN #30 tablet 10/05/16 Allergies Allergy/AdvReac Type Severity Reaction Status Date / Time azithromycin Allergy Hives Verified 02/28/17 23:41 Calcitonin Allergy Rash Verified 02/28/17 23:41 Iodinated Contrast- Oral and Allergy Rash Verified 02/28/17 23:41 IV Dye [Iodinated Contrast Media - Oral and] Penicillins Allergy Hives Verified 02/28/17 23:41 Sulfa (Sulfonamide Allergy Hives Verified 02/28/17 23:41 Antibiotics) aspirin AdvReac See Verified 02/28/17 23:41 Comments codeine AdvReac Hallucinati Verified 02/28/17 23:41 ng Estrogens AdvReac Cramping Verified 02/28/17 23:41 of the Muscles morphine AdvReac Hallucinati Verified 02/28/17 23:41 ng Oxycodone AdvReac Hallucinati Verified 02/28/17 23:41 ng tramadol AdvReac Hallucinati Verified 02/28/17 23:41 ng All systems ED: reviewed and negative except as stated. Constitutional: Denies: fever, chills Eyes: Denies: eye pain ENT ED: Denies: ear pain Cardiovascular: Denies: chest pain Respiratory: Denies: dyspnea Gastrointestinal: Denies: abdominal pain, nausea, vomiting Genitourinary: Denies: dysuria Musculoskeletal: Reports: as per HPI Integumentary: Denies: rash Neurological: Denies: headache, weakness, numbness, paresthesias Psychiatric: Denies: anxiety Endocrine: Denies: fatigue Hematological/Lymphatic: Denies: easy bleeding Allergic/Immunologic: Denies: facial swelling Fall PMH - Past Medical History Medical history: Reports: cancer, CHF, COPD, coronary artery disease, CVA, DVT, diabetes, hyperlipidemia, hypertension, myocardial infarction, osteoporosis, renal disease, other Surgical history: Reports: appendectomy, cholecystectomy Psychiatric history: Reports: no psych history 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 Absent: respiratory distress - Cardiovascular Cardiovascular exam: Present: regular rate, normal rhythm - Abdominal Exam Abdominal exam: Present: soft. Absent: distention, guarding, rebound - Extremities Exam Extremities exam: Present: normal inspection, normal capillary refill - Expanded Lower Extremity Exam Hip/Pelvis exam: Present: tenderness. Absent: deformity, external rotation, internal rotation, shortening Upper leg exam: Present: normal inspection, full ROM. Absent: tenderness Knee exam: Present: normal inspection, full ROM. Absent: tenderness Lower leg exam: Present: normal inspection, full ROM. Absent: tenderness Ankle exam: Present: normal inspection, full ROM. Absent: tenderness Foot/toe exam: Present: normal inspection, full ROM. Absent: tenderness Neurovascular/Tendon exam: Present: normal capillary refill. Absent: pulse deficit, motor deficit, sensory deficit, tendon deficit Gait: not tested/not observed - Back Exam Back exam: Absent: full ROM (active passive ROM limited due to pain) - Neurological Exam Neurological exam: Present: alert, oriented X3 - Psychiatric Psychiatric exam: Present: normal affect, normal mood - Skin Skin exam: Present: warm, dry, intact, normal color. Absent: rash, cyanosis, diaphoresis Course Course Narrative: Patient arrives via wheelchair from private vehicle from home with a reported mechanical fall. She is accompanied by her niece who assists with history. Patient was at home standing and had fallen. Patient at least describe her legs being more tired after this week, and describes the patient has been walking or this week. Patient and niece both deny any injury to head or neck, loss of consciousness, confusion, vomiting, near syncopal symptoms. Patient complains of left hip pain, back pain. Triage vitals within normal limits. Patient seen and examined. She is in no acute distress, does not look toxic. Normal distal pulses. No evidence to suggest trauma to upper extremities. Patient has left hip pain, otherwise normal lower extremity exams. Patient states that it hurts for her to sit up, limited range of motion of lumbar spine. No gross focal neurological deficits. Patient has requested Tylenol for pain. Left hip x-ray were was ordered upon patient's arrival to the exam room, shows no evidence of fractures. Patient was discussed with Dr. German, who agreed for decision to admit for pain control and therapy consult. He also advised patient will likely need MRI for evaluation of occult fracture. We will discuss patient with hospitalist. - Reevaluation(s) Reevaluation #1: Discussed patient with hospitalist Dr. Yo, who agreed to accept patient, however he did request CT of lumbar spine, for further evaluation of patient's back pain. On reexamination patient is also complaining of neck pain. Will order CT cervical spine. Time: 01:58 Vital Signs Temperature 97.7 F 02/28/17 23:41 Pulse Rate 67 02/28/17 23:41 Respiratory Rate 20 02/28/17 23:41 Blood Pressure 152/71 02/28/17 23:41 O2 Sat by Pulse Oximetry 97 02/28/17 23:41 Temperature 97.7 F 02/28/17 23:41 Pulse Rate 67 02/28/17 23:41 Respiratory Rate 20 03/01/17 04:55 Blood Pressure 119/57 03/01/17 04:55 O2 Sat by Pulse Oximetry 97 02/28/17 23:41 Oxygen Delivery Oxygen Delivery Room Air Fall - [facility] Narrative Medical decision making narrative: 86-year-old female that presented with a mechanical fall. She complained of left hip and low back pain. Workup showed a negative hip x-ray. No concerning evidence for injury to her head but she did have neck pain on reevaluation. Patient was discussed with Dr. German, who had agreed for inpatient admission for pain control, and further imaging with MRI. Patient was accepted by hospitalist, however they did not recommend CT of the patient's back pain. Her vitals have been stable. She had requested only Tylenol for her pain. Further imaging did show a compression fracture of her lumbar spine. She will be admitted for pain control with a consult, and PT, OT. Cervical Spine CT 03/01/17 01:59 IMPRESSION: No acute abnormality of the cervical spine. Moderate to severe mid cervical spine spondylosis. D/ / Jabari Viveros MD / Jabari Viveros MD Interpreting Provider: Jabari Viveros MD Lumbar Spine CT 03/01/17 01:59 IMPRESSION: 1. Acute mild compression fracture of the superior endplate of L1 vertebral body with minimal retropulsion. 2. Multilevel moderate lumbar spine spondylosis. D/ / Jabari Viveros MD / Jabari Viveros MD Interpreting Provider: Jabari Viveros MD Knee X-Ray 03/01/17 03:18 IMPRESSION: Osteoarthrosis with no definite fracture. D/ / Jaya Parks MD / Jaya Parks MD Interpreting Provider: Jaya Parks MD Hip X-Ray 03/01/17 23:52 IMPRESSION: No definite fracture. D/ / Jaya Parks MD / Jaya Parks MD Interpreting Provider: Jaya Parks MD All Lab Results (24 Hours) 03/01/17 03/01/17 Range/Units 02:09 02:09 WBC 7.7 (4.3-11.1) K/mcL RBC 3.72 L (3.82-4.97) M/mcL Hgb 11.7 (11.5-15.4) g/dL Hct 35.1 L (35.3-44.9) % MCV 94.4 (83.0-100.0) fL MCH 31.5 (28.0-33.3) pg MCHC 33.3 (31.6-35.5) g/dL RDW 14.0 (11.5-14.5) % Plt Count 226 (140-400) K/mcL MPV 8.7 L (9.4-12.4) fL Immature Gran % 0.5 (0-4) % Seg Neutrophils % 80.0 % Lymphocytes % 11.0 % Monocytes % 7.4 % Eosinophils % 0.8 % Basophils % 0.3 % Neutrophils # 6.1 (1.6-8.9) K/mcL Lymphocytes # 0.8 (0.6-4.6) K/mcL Monocytes # 0.6 (0.0-1.3) K/mcL Eosinophils # 0.1 (0.0-0.6) K/mcL Basophils # 0.0 (0.0-0.2) K/mcL Sodium 141 (136-145) mEq/L Potassium 2.8 L (3.5-4.5) mEq/L Chloride 103 (98-109) mEq/L Carbon Dioxide 26 (19-29) mEq/L BUN 23 H (7-20) mg/dL Creatinine 0.96 (0.57-1.11) mg/dL Est GFR ( Amer) > 60 (> 60) Est GFR (Non-Af Amer) 55 L (> 60) BUN/Creatinine Ratio 24 (6-26) Glucose 131 H (70-99) mg/dL Calculated Osmolality 297 (280-300) Calcium 8.7 (8.6-10.8) mg/dL - Lab Data Lab results reviewed: Yes I reviewed the patient's lab results. Result diagrams: 03/01/17 02:09 03/01/17 02:09 Lab Results 03/01/17 03/01/17 Range/Units 02:09 02:09 WBC 7.7 (4.3-11.1) K/mcL RBC 3.72 L (3.82-4.97) M/mcL Hgb 11.7 (11.5-15.4) g/dL Hct 35.1 L (35.3-44.9) % MCV 94.4 (83.0-100.0) fL MCH 31.5 (28.0-33.3) pg MCHC 33.3 (31.6-35.5) g/dL RDW 14.0 (11.5-14.5) % Plt Count 226 (140-400) K/mcL MPV 8.7 L (9.4-12.4) fL Immature Gran % 0.5 (0-4) % Seg Neutrophils % 80.0 % Lymphocytes % 11.0 % Monocytes % 7.4 % Eosinophils % 0.8 % Basophils % 0.3 % Neutrophils # 6.1 (1.6-8.9) K/mcL Lymphocytes # 0.8 (0.6-4.6) K/mcL Monocytes # 0.6 (0.0-1.3) K/mcL Eosinophils # 0.1 (0.0-0.6) K/mcL Basophils # 0.0 (0.0-0.2) K/mcL Sodium 141 (136-145) mEq/L Potassium 2.8 L (3.5-4.5) mEq/L Chloride 103 (98-109) mEq/L Carbon Dioxide 26 (19-29) mEq/L BUN 23 H (7-20) mg/dL Creatinine 0.96 (0.57-1.11) mg/dL Est GFR ( Amer) > 60 (> 60) Est GFR (Non-Af Amer) 55 L (> 60) BUN/Creatinine Ratio 24 (6-26) Glucose 131 H (70-99) mg/dL Calculated Osmolality 297 (280-300) Calcium 8.7 (8.6-10.8) mg/dL - Radiology Data Radiology results reviewed: Yes I reviewed the patient's radiology results.
[2017-03-01 02:15] LABS: Basophils % 0.3 %; Eosinophils # 0.1 K/mcL (0.0-0.6); Eosinophils % 0.8 %; Hematocrit 35.1 % (35.3-44.9); Hemoglobin 11.7 g/dL (11.5-15.4); Immature Granulocytes % 0.5 % (0-4); Lymphocytes # 0.8 K/mcL (0.6-4.6); Mean Corpuscular HGB Conc 33.3 g/dL (31.6-35.5); Mean Corpuscular Hemoglobin 31.5 pg (28.0-33.3); Mean Corpuscular Volume 94.4 fL (83.0-100.0); Mean Platelet Volume 8.7 fL (9.4-12.4); Monocytes # 0.6 K/mcL (0.0-1.3); Monocytes % 7.4 %; Neutrophils # 6.1 K/mcL (1.6-8.9); Platelet Count 226 K/mcL (140-400); Red Blood Count 3.72 M/mcL (3.82-4.97)
--- NOTE | 2017-03-01 02:19 | Emergency Department Note ---
START Narrative - START START: I examined this patient and my medical decision-making was reviewed with the JAYDON. I agree with the documented findings, disposition and treatment plan as described except to the extent set forth below. S/P mechanical fall. Non-toxic in appearance, but unable to sit up independently in bed let alone walk. XRs negative, concerned for occult fx. Recommend admit for MRI, PT/OT assessment, analgesia.
[2017-03-01 02:28] LABS: BUN/Creatinine Ratio 24 (6-26); Blood Urea Nitrogen 23 mg/dL (7-20); Calcium 8.7 mg/dL (8.6-10.8); Carbon Dioxide 26 mEq/L (19-29); Chloride 103 mEq/L (98-109); Glucose 131 mg/dL (70-99); Osmolality,Calculated 297 (280-300); Potassium 2.8 mEq/L (3.5-4.5); Sodium 141 mEq/L (136-145); eGFR For African Americans > 60 (> 60); eGFR For Non-African Americans 55 (> 60)
[2017-03-01] MEDS ORDERED: Naloxone 0.4 MG/ML INJ IVP PRN (03:19)
[2017-03-01] MEDS ORDERED: 0.9 % Sodium Chloride 1,000 ML IVC SCH (03:30)
--- NOTE | 2017-03-01 03:31 | Internal Med History&Physical ---
Date of Encounter: 03/01/17 Time of Encounter: 02:30 Assessment and Plan (1) Fall Current visit: Yes Status: Acute Mechanical fall. Complaint low back pain, need to rule out vertebral compression fracture. - C-spine and L-spine CT has been done, need to follow the radiology report. - Physical therapy and occupational therapy - Pain management, patient is allergic to oxycodone and morphine. We will place her on Toradol and lidocaine patch. - Orthopedic consult if there is fracture identified. Qualifiers: Encounter type: initial encounter Qualified Code(s): W19.XXXA - Unspecified fall, initial encounter (2) Hypertension Current visit: Yes Status: Acute Continue home medication. Hydralazine IV when necessary. Well pain management to decrease the stress. Qualifiers: Hypertension type: essential hypertension Qualified Code(s): I10 - Essential (primary) hypertension (3) COPD (chronic obstructive pulmonary disease) Current visit: No Status: Chronic Stable, continue home medications. Qualifiers: COPD type: unspecified COPD Qualified Code(s): J44.9 - Chronic obstructive pulmonary disease, unspecified (4) DVT prophylaxis Current visit: No Status: Acute Heparin subcutaneously. (5) Hypokalemia Current visit: Yes Status: Acute We will give potassium supplement. Follow up potassium level. Internal Medicine - H&P: HPI Chief complaint: Fall Admitted From: Home Plans for Post Hospital Care: Transfer Inp Rehab Fac History of present illness: Ms. Sanchez is a 86 year old female present to ER for mechanical fall. Patient denies loss of consciousness. Denies head injury. She said she has multiple recent falls. Patient complains low back pain, pain is getting worse when she coughs. The emergency room, hip XR negative for fracture. C-spine and L-spine CT has been done, report is pending. Patient also has right knee pain when I examined her, right knee x-ray also ordered. Patient was admitted for observation and physical therapy. I discussed the CODE STATUS with patient. She is full code. Past Med Surg Social Fam HX - Past Medical History Medical history: cancer, CHF, COPD, coronary artery disease, CVA, DVT, diabetes , hyperlipidemia, hypertension, myocardial infarction, osteoporosis, renal disease, other Psychiatric history: no psych history - Past Surgical History Surgical History: appendectomy, cholecystectomy - Social History Smoking Status: Never smoker Smokeless Tobacco Status: No Alcohol use: none Drug use: none Internal Medicine - H&P: Meds Albuterol Sulfate [Albuterol Inhaler] 2 puff IH Q6HR PRN 08/08/15 [History] Budesonide/Formoterol 160/4.5 [Symbicort] 2 puff IH BIDR 08/08/15 [History] Clopidogrel [Plavix] 75 mg PO DAILY 08/08/15 [History] Ferrous Sulfate 325 mg PO DAILY 08/08/15 [History] Furosemide [Lasix] 40 mg PO BID 08/08/15 [History] Metoprolol [Lopressor] 50 mg PO BID 08/08/15 [History] Multivitamin/Iron/Folic Acid [Centrum Complete Multivit Tab] 1 tab PO DAILY 06/14 [History] Potassium Chloride 70 meq PO DAILY 08/08/15 [History] [place] Oil/[place]-3 Fatty Acids [Fish Oil 500 mg Softgel] 1,000 mg PO DAILY 08/08 [History] Sucralfate [Carafate] 1 gm PO QIDAC 08/08/15 [History] Ergocalciferol (VITAMIN D2) [Vitamin D2] 50,000 unit PO GIPSON 10/02/16 [History] Pantoprazole Sodium [Protonix] 20 mg PO DAILY 10/02/16 [History] Pravastatin Sodium [Pravachol] 20 mg PO DAILY 10/02/16 [History] Metoclopramide [Reglan] 5 mg PO Q6HR PRN #30 tablet 10/05/16 [Rx] Allergies azithromycin Allergy (Verified 02/28/17 23:41) Hives Calcitonin Allergy (Verified 02/28/17 23:41) Rash Iodinated Contrast- Oral and IV Dye [Iodinated Contrast Media - Oral and] Allergy (Verified 02/28/17 23:41) Rash Penicillins Allergy (Verified 02/28/17 23:41) Hives Sulfa (Sulfonamide Antibiotics) Allergy (Verified 02/28/17 23:41) Hives aspirin Adverse Reaction (Verified 02/28/17 23:41) See Comments TINNITUS codeine Adverse Reaction (Verified 02/28/17 23:41) Hallucinating Estrogens Adverse Reaction (Verified 02/28/17 23:41) Cramping of the Muscles morphine Adverse Reaction (Verified 02/28/17 23:41) Hallucinating Oxycodone Adverse Reaction (Verified 02/28/17 23:41) Hallucinating tramadol Adverse Reaction (Verified 02/28/17 23:41) Hallucinating All Systems PM: A 10-system review of systems was performed and is negative for pertinent findings except as documented above in the HPI. - Constitutional Vitals: Temp Pulse Resp BP Pulse Ox 97.7 F 67 20 152/71 97 02/28/17 23:41 02/28/17 23:41 02/28/17 23:41 02/28/17 23:41 02/28/17 23:41 General appearance: Present: mild distress, A&O X 3, answers questions appropriately - Head Head exam: Present: atraumatic, normocephalic - Eye Eye exam: Present: PERRL, conjuntiva pink, sclera anicteric Pupils: Present: PERRL - Neck Neck exam general surgery: Present: supple, trachea midline. Absent: lymphadenopathy - Respiratory Respiratory exam: Present: CTAB. Absent: accessory muscle use, rales, rhonchi, wheezes - Cardiovascular Cardiovascular exam: Present: RRR, +S1, +S2. Absent: diastolic murmur, gallop, rubs, systolic murmur - GI/Abdominal GI/Abdominal exam: Present: normal bowel sounds, soft, no peritoneal signs. Absent: distended, tenderness - Extremities Exam Extremities exam: Present: warm, radial pulses palpable and symetrical. Absent : calf tenderness, cyanotic, pedal edema Additional comments: Tenderness on L spine area - Neurological Exam Neurological exam: Present: CN II-XII intact, oriented X3, no focal deficits. Absent: pronater drift, facial droop, speech deficit - Skin Skin exam: Present: dry, intact Internal Med - H&P Results - Labs CBC & Chem 7: 03/01/17 02:09 03/01/17 02:09 - Impressions ITS Impressions Hip X-Ray 03/01/17 23:52 IMPRESSION: No definite fracture. D/ / Jaya Parks MD / Jaya Parks MD Interpreting Provider: Jaya Parks MD
[2017-03-01 05:47] LABS: BUN/Creatinine Ratio 24 (6-26); Blood Urea Nitrogen 23 mg/dL (7-20); Calcium 8.6 mg/dL (8.6-10.8); Carbon Dioxide 27 mEq/L (19-29); Chloride 106 mEq/L (98-109); Glucose 117 mg/dL (70-99); Magnesium 1.6 mg/dL (1.6-2.6); Osmolality,Calculated 299 (280-300); Phosphorous 3.9 mg/dL (2.3-4.7); Potassium 3.1 mEq/L (3.5-4.5); Sodium 142 mEq/L (136-145); eGFR For African Americans > 60 (> 60); eGFR For Non-African Americans 54 (> 60)
[2017-03-01 05:52] LABS: Basophils % 0.3 %; Eosinophils # 0.1 K/mcL (0.0-0.6); Eosinophils % 0.9 %; Hematocrit 33.7 % (35.3-44.9); Hemoglobin 11.3 g/dL (11.5-15.4); Immature Granulocytes % 0.7 % (0-4); Lymphocytes # 1.2 K/mcL (0.6-4.6); Lymphocytes % 15.4 %; Mean Corpuscular HGB Conc 33.5 g/dL (31.6-35.5); Mean Corpuscular Hemoglobin 31.6 pg (28.0-33.3); Mean Corpuscular Volume 94.1 fL (83.0-100.0); Mean Platelet Volume 9.3 fL (9.4-12.4); Monocytes # 0.5 K/mcL (0.0-1.3); Monocytes % 6.9 %; Neutrophils # 5.7 K/mcL (1.6-8.9); Platelet Count 228 K/mcL (140-400); Red Blood Count 3.58 M/mcL (3.82-4.97); Red Cell Distribution Width 13.9 % (11.5-14.5); Segmented Neutrophils % 75.8 %
[2017-03-01] MEDS: Ketorolac 15 MG/ML VIAL IVP SCH ×3 (06:03→17:47)
[2017-03-01] MEDS: *HR* Heparin 5,000 UNIT/ML VIAL SQ SCH ×2 (06:04→17:56)
[2017-03-01] MEDS: 0.9 % Sodium Chloride 1,000 ML IVC SCH ×2 (06:05→21:46)
[2017-03-01] MEDS: Budesonide/Formoterol 160/4.5 MDI IH SCH ×2 (08:48→20:23)
[2017-03-01] MEDS: Acetaminophen 325 MG TABLET PO PRN ×2 (11:33→17:56)
--- NOTE | 2017-03-01 15:08 | Spinal Consult Note ---
Date of Encounter: 03/01/17 Time of Encounter: 15:05 Assessment and Plan (1) Osteopenia Current Visit: Yes Status: Chronic On exam she appears to be in significant distress with movement. Afebrile vital signs stable. She has tenderness to palpation in the thoracolumbar region. She is able to fire all upper and lower extremity motor groups. She has no clonus. CT scan of the lumbar spine reveals an acute vertebral compression fracture at the superior endplate of L1. There is no significant retropulsion of fragments. She has a grade 1 degenerative spondylolisthesis at L4-5. Impression: 1) osteopenia 2) acute vertebral compression fracture L1 3) spondylolisthesis L4-5 Plan: The patient has difficulty with narcotics and has severe pain. She is likely to do poorly with brace treatment. Of those these options were discussed she is a potential candidate for kyphoplasty L1. However, the patient has significant medical comorbidities including pacemaker placement, history of OH, coronary artery disease, congestive heart failure, oxygen supplementation, and history of cerebrovascular accident to name a few. She will need cardiac and hospitalist clearance and medical optimization prior to consideration of a kyphoplasty although this is a fairly minor procedure. For now I will continue with analgesics, and if medical optimization and clearance measures are completed I will follow-up on Saturday to again consider kyphoplasty. Patient is amenable to this plan. An outpatient basis the patient will need to be placed on osteoprotective agents to lessen the risk of future fragility fractures. Qualifiers: Osteopenia location: spine Qualified Code(s): M85.88 - Other specified disorders of bone density and structure, other site History of Present Illness Chief complaint: back pain HPI: Ms. Sanchez is a 86 year old female With multiple medical comorbidities including history of cerebrovascular accident, history of OH, COPD, CHF, hyperlipidemia, history of pacemaker placement 2, coronary artery disease and renal disease who had a recent fall and now complains of severe back pain. Due to her intractable pain she is now having difficulty mobilizing secondary to the pain. She was admitted for definitive management and workup revealed a vertebral compression fracture at L1. We are asked to see regarding potential management. Past Med Surg Social Fam HX - Past Medical History Medical history: cancer, CHF, COPD, coronary artery disease, CVA, DVT, diabetes , hyperlipidemia, hypertension, myocardial infarction, osteoporosis, renal disease, other Psychiatric history: no psych history - Past Surgical History Surgical History: appendectomy, cholecystectomy - Social History Smoking Status: Never smoker Smokeless Tobacco Status: No Alcohol use: none Drug use: none Medications and Allergies Albuterol Sulfate [Albuterol Inhaler] 2 puff IH Q6HR PRN 08/08/15 [History] Budesonide/Formoterol 160/4.5 [Symbicort] 2 puff IH BIDR 08/08/15 [History] Clopidogrel [Plavix] 75 mg PO DAILY 08/08/15 [History] Ferrous Sulfate 325 mg PO DAILY 08/08/15 [History] Furosemide [Lasix] 40 mg PO BID 08/08/15 [History] Metoprolol [Lopressor] 100 mg PO BID 08/08/15 [History] Multivitamin/Iron/Folic Acid [Centrum Complete Multivit Tab] 1 tab PO DAILY 06/14 [History] Potassium Chloride 70 meq PO DAILY 08/08/15 [History] [place] Oil/[place]-3 Fatty Acids [Fish Oil 500 mg Softgel] 2,000 mg PO BID [History] Sucralfate [Carafate] 1 gm PO BID 08/08/15 [History] Ergocalciferol (VITAMIN D2) [Vitamin D2] 50,000 unit PO GIPSON 10/02/16 [History] Pantoprazole Sodium [Protonix] 20 mg PO DAILY 10/02/16 [History] Pravastatin Sodium [Pravachol] 20 mg PO DAILY 10/02/16 [History] Acetaminophen [Tylenol] 325 mg PO Q6HR PRN 03/01/17 [History] Acetylcysteine [C-Umpjqm-q-Cysteine] 600 mg PO Q8H 03/01/17 [History] Ascorbate Calcium [Vitamin C] 500 mg PO DAILY 03/01/17 [History] Calcium Carbonate/Vitamin D3 [Calcium 600-Vit D3 400 Tablet] 1 tab PO DAILY 11/16 [History] Clotrimazole 1% CRM [Lotrimin 1%] 1 appl TP BID 03/01/17 [History] Docusate [Colace] 100 mg PO BID 03/01/17 [History] Donepezil [Aricept] 5 mg PO HS 03/01/17 [History] Glucosamn/[place]/C/Mn/[place] [Cvs Glucosamine Chondroitin Tb] 1 tab PO DAILY 03/01/17 [History] Ondansetron ODT [Zofran ODT] 4 mg SL Q8HR PRN 03/01/17 [History] Oxygen 1 each .ROUTE AD 03/01/17 [History] Sennosides [Senna] 17.2 mg PO HS 03/01/17 [History] Vitamin B Complex Vit C No.4 [Super B Complex] 1 tab PO DAILY 03/01/17 [History] Vitamin E (Dl,Tocopheryl Acet) [Vitamin E] 400 unit PO DAILY 03/01/17 [History] Allergies azithromycin Allergy (Verified 02/28/17 23:41) Hives Calcitonin Allergy (Verified 02/28/17 23:41) Rash Iodinated Contrast- Oral and IV Dye [Iodinated Contrast Media - Oral and] Allergy (Verified 02/28/17 23:41) Rash Penicillins Allergy (Verified 02/28/17 23:41) Hives Sulfa (Sulfonamide Antibiotics) Allergy (Verified 02/28/17 23:41) Hives aspirin Adverse Reaction (Verified 02/28/17 23:41) See Comments TINNITUS codeine Adverse Reaction (Verified 02/28/17 23:41) Hallucinating Estrogens Adverse Reaction (Verified 02/28/17 23:41) Cramping of the Muscles morphine Adverse Reaction (Verified 02/28/17 23:41) Hallucinating Oxycodone Adverse Reaction (Verified 02/28/17 23:41) Hallucinating tramadol Adverse Reaction (Verified 02/28/17 23:41) Hallucinating Results - Labs Result Diagrams: 03/01/17 05:23 03/01/17 05:23 Labs: Abnormal lab results RBC 3.58 M/mcL (3.82-4.97) L 03/01/17 05:23 Hgb 11.3 g/dL (11.5-15.4) L 03/01/17 05:23 Hct 33.7 % (35.3-44.9) L 03/01/17 05:23 MPV 9.3 fL (9.4-12.4) L 03/01/17 05:23 Potassium 3.1 mEq/L (3.5-4.5) L 03/01/17 05:23 BUN 23 mg/dL (7-20) H 03/01/17 05:23 Est GFR (Non-Af Amer) 54 (> 60) L 03/01/17 05:23 Glucose 117 mg/dL (70-99) H 03/01/17 05:23 H & H 03/01/17 Range/Units 05:23 Hgb 11.3 L (11.5-15.4) g/dL Hct 33.7 L (35.3-44.9) % All other labs normal. Consult Discharge Plan - Plan Referrals: Shreyas Mera MD [Primary Care Provider] -
[2017-03-01] MEDS ORDERED: Ibuprofen 400 MG TABLET PO ONE (20:33)
[2017-03-01] MEDS ORDERED: Famotidine 20 MG TABLET PO SCH (20:45)
[2017-03-02] MEDS: Acetaminophen 325 MG TABLET PO PRN ×3 (02:04→15:13)
[2017-03-02] MEDS ORDERED: Pantoprazole 40 MG VIAL IVP ONE (02:32)
[2017-03-02] MEDS: *HR* Heparin 5,000 UNIT/ML VIAL SQ SCH ×2 (05:34→17:25)
[2017-03-02] MEDS: Budesonide/Formoterol 160/4.5 MDI IH SCH ×2 (08:22→20:04)
--- NOTE | 2017-03-02 08:46 | Cardiology Consult Note ---
Date of Encounter: 03/02/17 Time of Encounter: 08:36 Assessment and Plan (1) Preop cardiovascular exam Current Visit: Yes Status: Acute Her age and poor functional capacity places her at low to moderate risk for kyphoplasty. From a CV standpoint LV function normal and no significant VHD. No compelling indication for further preoperative testing. (2) Atrial fibrillation Current Visit: Yes Status: Acute AF per reports s/p pacemaker. Poor coumadin candidate per reports (frequent falls). Recommend aspirin/bb therapy. Qualifiers: Atrial fibrillation type: chronic Qualified Code(s): I48.2 - Chronic atrial fibrillation Discussion w patient/family: The assessment and plan as outlined above was discussed with the patient and/or family members who expressed understanding and agreement. All questions were answered. Thank you for involving us in the care of your patient. Please call with any questions. History of Present Illness Consult date: 03/02/17 Requesting physician: Gisselle Yo Consult reason: Preop Chief complaint: Preop History of present illness: Ms. Sanchez is a 86 year old female. Somewhat of a poor historian - dementia per reports. Currently resting in bed - complains of generalized pain, especially in back. Preoperative evaluation re: kyphoplasty. Functional capacity appears limited. Cardiac history: AF, s/p pacemaker. Reported poor coumadin candidate due to falls. [facility] 12/2012: Minimal CAD. [facility] 09/2016: LVEF 60%. No PHTN. NO VHD. Past Med Surg Social Fam HX - Past Medical History Medical history: atrial fibrillation, cancer, CHF, COPD, coronary artery disease , CVA, DVT, diabetes, hyperlipidemia, hypertension, myocardial infarction, osteoporosis, renal disease, other Psychiatric history: no psych history - Past Surgical History Surgical History: appendectomy, cholecystectomy - Social History Smoking Status: Never smoker Smokeless Tobacco Status: No Alcohol use: none Drug use: none Medications and Allergies Albuterol Sulfate [Albuterol Inhaler] 2 puff IH Q6HR PRN 08/08/15 [History] Budesonide/Formoterol 160/4.5 [Symbicort] 2 puff IH BIDR 08/08/15 [History] Clopidogrel [Plavix] 75 mg PO DAILY 08/08/15 [History] Ferrous Sulfate 325 mg PO DAILY 08/08/15 [History] Furosemide [Lasix] 40 mg PO BID 08/08/15 [History] Metoprolol [Lopressor] 100 mg PO BID 08/08/15 [History] Multivitamin/Iron/Folic Acid [Centrum Complete Multivit Tab] 1 tab PO DAILY 06/14 [History] Potassium Chloride 70 meq PO DAILY 08/08/15 [History] [place] Oil/[place]-3 Fatty Acids [Fish Oil 500 mg Softgel] 2,000 mg PO BID [History] Sucralfate [Carafate] 1 gm PO BID 08/08/15 [History] Ergocalciferol (VITAMIN D2) [Vitamin D2] 50,000 unit PO GIPSON 10/02/16 [History] Pantoprazole Sodium [Protonix] 20 mg PO DAILY 10/02/16 [History] Pravastatin Sodium [Pravachol] 20 mg PO DAILY 10/02/16 [History] Acetaminophen [Tylenol] 325 mg PO Q6HR PRN 03/01/17 [History] Acetylcysteine [M-Vdhrlq-g-Cysteine] 600 mg PO Q8H 03/01/17 [History] Ascorbate Calcium [Vitamin C] 500 mg PO DAILY 03/01/17 [History] Calcium Carbonate/Vitamin D3 [Calcium 600-Vit D3 400 Tablet] 1 tab PO DAILY 11/16 [History] Clotrimazole 1% CRM [Lotrimin 1%] 1 appl TP BID 03/01/17 [History] Docusate [Colace] 100 mg PO BID 03/01/17 [History] Donepezil [Aricept] 5 mg PO HS 03/01/17 [History] Glucosamn/[place]n/C/Mn/[place] [Cvs Glucosamine Chondroitin Tb] 1 tab PO DAILY 03/01/17 [History] Ondansetron ODT [Zofran ODT] 4 mg SL Q8HR PRN 03/01/17 [History] Oxygen 1 each .ROUTE AD 03/01/17 [History] Sennosides [Senna] 17.2 mg PO HS 03/01/17 [History] Vitamin B Complex Vit C No.4 [Super B Complex] 1 tab PO DAILY 03/01/17 [History] Vitamin E (Dl,Tocopheryl Acet) [Vitamin E] 400 unit PO DAILY 03/01/17 [History] Allergies azithromycin Allergy (Verified 02/28/17 23:41) Hives Calcitonin Allergy (Verified 02/28/17 23:41) Rash Iodinated Contrast- Oral and IV Dye [Iodinated Contrast Media - Oral and] Allergy (Verified 02/28/17 23:41) Rash Penicillins Allergy (Verified 02/28/17 23:41) Hives Sulfa (Sulfonamide Antibiotics) Allergy (Verified 02/28/17 23:41) Hives aspirin Adverse Reaction (Verified 02/28/17 23:41) See Comments TINNITUS codeine Adverse Reaction (Verified 02/28/17 23:41) Hallucinating Estrogens Adverse Reaction (Verified 02/28/17 23:41) Cramping of the Muscles morphine Adverse Reaction (Verified 02/28/17 23:41) Hallucinating Oxycodone Adverse Reaction (Verified 02/28/17 23:41) Hallucinating tramadol Adverse Reaction (Verified 02/28/17 23:41) Hallucinating All Systems Review: A 10-system review of systems was performed and is negative for pertinent findings except as documented above in the HPI. - Cardiovascular Cardiovascular: as per HPI Physical Examination Vital Signs, Last 4 Hours Temp Pulse Resp BP Pulse Ox 03/02/17 08:23 18 95 03/02/17 06:51 98.5 F 83 18 128/72 96 General: Conversant, No Apparent Distress HEENT: Atraumatic, Normocephaly, Mucus Membranes Moist Neck: No JVD, Normal carotid pulses Cardiac: Reg Rate and Rhythm, Normal S1 and S2, No Murmur Lungs: Normal Breath Sounds, No Wheeze, Rales, Rhonchi Neuro: Alert and responsive, No focal deficits noted Abdomen: Soft, Non-Tender Skin: No rashes noted on visualized skin Musculoskeletal: No Chest Wall Tenderness Extremities: No Clubbing, No Cyanosis, No Edema Results 03/01/17 05:23 03/01/17 05:23 - Imaging and Cardiology Echo: report reviewed - EKG Interpretation EKG results cardiology: personally reviewed Consult Discharge Plan - Plan Referrals: Shreyas Mera MD [Primary Care Provider] -
[2017-03-02 11:46] LABS: Basophils % 0.4 %; Eosinophils # 0.2 K/mcL (0.0-0.6); Eosinophils % 3.3 %; Hematocrit 31.9 % (35.3-44.9); Hemoglobin 10.5 g/dL (11.5-15.4); Immature Granulocytes % 0.4 % (0-4); Lymphocytes # 0.7 K/mcL (0.6-4.6); Lymphocytes % 10.2 %; Mean Corpuscular HGB Conc 32.9 g/dL (31.6-35.5); Mean Corpuscular Hemoglobin 31.6 pg (28.0-33.3); Mean Corpuscular Volume 96.1 fL (83.0-100.0); Mean Platelet Volume 8.8 fL (9.4-12.4); Monocytes # 0.4 K/mcL (0.0-1.3); Monocytes % 6.3 %; Neutrophils # 5.6 K/mcL (1.6-8.9); Platelet Count 195 K/mcL (140-400); Red Blood Count 3.32 M/mcL (3.82-4.97); Red Cell Distribution Width 14.1 % (11.5-14.5); Segmented Neutrophils % 79.4 %
[2017-03-02 11:56] LABS: BUN/Creatinine Ratio 18 (6-26); Blood Urea Nitrogen 16 mg/dL (7-20); Calcium 8.2 mg/dL (8.6-10.8); Carbon Dioxide 21 mEq/L (19-29); Chloride 111 mEq/L (98-109); Glucose 135 mg/dL (70-99); Osmolality,Calculated 293 (280-300); Potassium 3.2 mEq/L (3.5-4.5); Sodium 140 mEq/L (136-145); eGFR For African Americans > 60 (> 60); eGFR For Non-African Americans 59 (> 60)
--- NOTE | 2017-03-02 12:02 | Internal Med Progress Note ---
Date of Encounter: 03/02/17 Time of Encounter: 12:00 - Assessment and plan (1) Fall Current Visit: Yes Status: Acute Qualifiers: Encounter type: initial encounter Qualified Code(s): W19.XXXA - Unspecified fall, initial encounter (2) Hypertension Current Visit: Yes Status: Acute Assessment and plan: monitor BP. Qualifiers: Hypertension type: essential hypertension Qualified Code(s): I10 - Essential (primary) hypertension (3) Lumbar compression fracture Current Visit: Yes Status: Acute Assessment and plan: seen by DR. Heller, planned for kyphoplasty on saturday. low to mod risk for procedure. patient is allergic to codeine , tramadol and morphine will continue tylenol and motrin prn Qualifiers: Encounter type: initial encounter Fracture type: closed Qualified Code(s) : S32.000A - Wedge compression fracture of unspecified lumbar vertebra, initial encounter for closed fracture (4) Osteopenia Current Visit: Yes Status: Chronic Qualifiers: Osteopenia location: spine Qualified Code(s): M85.88 - Other specified disorders of bone density and structure, other site (5) Atrial fibrillation Current Visit: Yes Status: Acute Assessment and plan: no RVR, stable. Qualifiers: Atrial fibrillation type: chronic Qualified Code(s): I48.2 - Chronic atrial fibrillation (6) Congestive heart failure Current Visit: No Status: Chronic Assessment and plan: not in exacerbation appreciate cardio recommendations no need for additional pre op cardiac investigations Qualifiers: Congestive heart failure type: unspecified congestive heart failure type Congestive heart failure chronicity: chronic Qualified Code(s): I50.9 - Heart failure, unspecified (7) COPD (chronic obstructive pulmonary disease) Current Visit: No Status: Chronic Assessment and plan: stable Qualifiers: COPD type: unspecified COPD Qualified Code(s): J44.9 - Chronic obstructive pulmonary disease, unspecified - Subjective Interval history: seen at the bedside, admitted 2/2 fall and L1 compression fracture appreciate spine consult recommendations [patient to undergo kyphoplasty on saturday, cardio consulted for pre op cardiac risk assesment, low to moderate risk for the procedure. - Constitutional Vitals: Temp Pulse Resp BP Pulse Ox 98.0 F 60 16 126/61 96 03/02/17 11:30 03/02/17 11:30 03/02/17 11:30 03/02/17 11:30 03/02/17 11:30 General appearance: Present: mild distress, A&O X 3, answers questions appropriately Exam: - Head Head exam: Present: atraumatic, normocephalic - Eye Eye exam: Present: PERRL, conjuntiva pink, sclera anicteric Pupils: Present: PERRL - Neck Neck exam general surgery: Present: supple, trachea midline. Absent: lymphadenopathy - Respiratory Respiratory exam: Present: CTAB. Absent: accessory muscle use, rales, rhonchi, wheezes - Cardiovascular Cardiovascular exam: Present: RRR, +S1, +S2. Absent: diastolic murmur, gallop, rubs, systolic murmur - GI/Abdominal GI/Abdominal exam: Present: normal bowel sounds, soft, no peritoneal signs. Absent: distended, tenderness - Extremities Exam Extremities exam: Present: warm, radial pulses palpable and symetrical. Absent : calf tenderness, cyanotic, pedal edema Additional comments: Tenderness on L spine area - Neurological Exam Neurological exam: Present: CN II-XII intact, oriented X3, no focal deficits. Absent: pronater drift, facial droop, speech deficit - Skin Skin exam: Present: dry, intact Internal Medicine: Result - Labs CBC & Chem 7: 03/02/17 11:33 03/02/17 11:33 Labs: BMP 03/02/17 11:33 Sodium 140 Potassium 3.2 L Chloride 111 H Carbon Dioxide 21 BUN 16 Creatinine 0.90 Glucose 135 H Calcium 8.2 L Consult Discharge Plan - Plan Referrals: Shreyas Mera MD [Primary Care Provider] -
[2017-03-02] MEDS: Ibuprofen 400 MG TABLET PO PRN (12:03)
[2017-03-02 12:46] LABS: Bilirubin,Urine Negative (Negative); Blood,Urine Negative (Negative); Clarity,Urine Clear (Clear); Color,Urine Yellow (Yellow); Glucose,Urine (UA) Normal (Normal); Ketones,Urine Negative (Negative); Leukocyte Esterase,Urine Moderate (Negative); Nitrite,Urine Negative (Negative); Protein,Urine Negative (Neg-Trace); Specific Gravity,Urine 1.011 (1.010-1.025); Urobilinogen,Urine Normal (Normal)
[2017-03-02 12:49] LABS: Bacteria,Urine None Seen per hpf (None-Few); Hyaline Casts,Urine None Seen per lpf (None-Few); Squamous Epithelial Cell,Urine Many per lpf (None-Few)
--- NOTE | 2017-03-02 12:50 | Electrocardiograph Report ---
[place] [id number] Test Date: 2017-03-01 Pat Name: Sheree Sanchez Department: 114 Room: [facility] Gender: F [employer] Operator: NIKITA : 1930 Requested By: Anca Garcia Order Number: [id number] Reading MD: Thai Atwood MD Measurements Intervals [place] Rate: 64 P: ME: 0 QRS: -85 QRSD: 192 T: 71 QT: 506 QTc: 515 Interpretive Statements ELECTRONIC VENTRICULAR PACEMAKER Electronically Signed On 03-02-2017 12:49:16 EDT by Thai Atwood MD
[2017-03-02] MEDS: Ketorolac 15 MG/ML VIAL IVP PRN (18:02)
[2017-03-03] MEDS: Ketorolac 15 MG/ML VIAL IVP PRN ×3 (00:19→12:23)
[2017-03-03] MEDS: Ondansetron 4 MG/2 ML VIAL IVP PRN ×2 (06:03→16:05)
[2017-03-03] MEDS: *HR* Heparin 5,000 UNIT/ML VIAL SQ SCH ×2 (06:03→17:31)
[2017-03-03] MEDS: Budesonide/Formoterol 160/4.5 MDI IH SCH ×2 (08:18→20:36)
[2017-03-03] MEDS: Ibuprofen 400 MG TABLET PO PRN ×2 (08:56→16:05)
[2017-03-03] MEDS ORDERED: Ondansetron 4 MG/2 ML VIAL IVP ONE (09:01)
[2017-03-03] MEDS: Pantoprazole 40 MG VIAL IVP SCH (09:08)
[2017-03-03 09:36] LABS: BUN/Creatinine Ratio 17 (6-26); Basophils % 0.3 %; Blood Urea Nitrogen 17 mg/dL (7-20); Calcium 8.8 mg/dL (8.6-10.8); Carbon Dioxide 21 mEq/L (19-29); Chloride 111 mEq/L (98-109); Eosinophils # 0.3 K/mcL (0.0-0.6); Eosinophils % 4.6 %; Glucose 126 mg/dL (70-99); Hematocrit 32.7 % (35.3-44.9); Hemoglobin 10.7 g/dL (11.5-15.4); Immature Granulocytes % 0.4 % (0-4); Lymphocytes % 14.6 %; Mean Corpuscular HGB Conc 32.7 g/dL (31.6-35.5); Mean Corpuscular Hemoglobin 31.3 pg (28.0-33.3); Mean Corpuscular Volume 95.6 fL (83.0-100.0); Mean Platelet Volume 9.2 fL (9.4-12.4); Monocytes # 0.5 K/mcL (0.0-1.3); Monocytes % 7.4 %; Neutrophils # 5.1 K/mcL (1.6-8.9); Osmolality,Calculated 293 (280-300); Platelet Count 206 K/mcL (140-400); Potassium 3.6 mEq/L (3.5-4.5); Red Blood Count 3.42 M/mcL (3.82-4.97); Red Cell Distribution Width 14.1 % (11.5-14.5); Segmented Neutrophils % 72.7 %; Sodium 140 mEq/L (136-145); eGFR For African Americans > 60 (> 60); eGFR For Non-African Americans 51 (> 60)
[2017-03-03] MEDS ORDERED: *HR* Promethazine 25 MG/ML VIAL IVP ONE (11:09)
[2017-03-03] MEDS: Acetaminophen 325 MG TABLET PO PRN (12:24)
--- NOTE | 2017-03-03 12:24 | Internal Med Progress Note ---
Date of Encounter: 03/03/17 Time of Encounter: 12:22 - Assessment and plan (1) Fall Current Visit: Yes Status: Acute Qualifiers: Encounter type: initial encounter Qualified Code(s): W19.XXXA - Unspecified fall, initial encounter (2) Hypertension Current Visit: Yes Status: Acute Assessment and plan: monitor BP. Qualifiers: Hypertension type: essential hypertension Qualified Code(s): I10 - Essential (primary) hypertension (3) Lumbar compression fracture Current Visit: Yes Status: Acute Assessment and plan: seen by DR. Heller, planned for kyphoplasty on saturday. low to mod risk for procedure. patient is allergic to codeine , tramadol and morphine will continue tylenol and motrin prn , also on ketorolac prn for severe pain Qualifiers: Encounter type: initial encounter Fracture type: closed Qualified Code(s) : S32.000A - Wedge compression fracture of unspecified lumbar vertebra, initial encounter for closed fracture (4) Osteopenia Current Visit: Yes Status: Chronic Qualifiers: Osteopenia location: spine Qualified Code(s): M85.88 - Other specified disorders of bone density and structure, other site (5) Atrial fibrillation Current Visit: Yes Status: Acute Assessment and plan: no RVR, stable. Qualifiers: Atrial fibrillation type: chronic Qualified Code(s): I48.2 - Chronic atrial fibrillation (6) Congestive heart failure Current Visit: No Status: Chronic Assessment and plan: not in exacerbation appreciate cardio recommendations no need for additional pre op cardiac investigations Qualifiers: Congestive heart failure type: unspecified congestive heart failure type Congestive heart failure chronicity: chronic Qualified Code(s): I50.9 - Heart failure, unspecified (7) COPD (chronic obstructive pulmonary disease) Current Visit: No Status: Chronic Assessment and plan: stable Qualifiers: COPD type: unspecified COPD Qualified Code(s): J44.9 - Chronic obstructive pulmonary disease, unspecified - Subjective Interval history: seen at the bedside, admitted 2/2 fall and L1 compression fracture, c/o nausea and persistent back pain appreciate spine consult recommendations [patient to undergo kyphoplasty on saturday, cardio consulted for pre op cardiac risk assesment, low to moderate risk for the procedure. - Constitutional Vitals: Temp Pulse Resp BP Pulse Ox 97.6 F 78 16 106/54 95 03/03/17 11:00 03/03/17 11:00 03/03/17 11:00 03/03/17 11:00 03/03/17 11:00 General appearance: Present: mild distress, A&O X 3, answers questions appropriately Exam: - Head Head exam: Present: atraumatic, normocephalic - Eye Eye exam: Present: PERRL, conjuntiva pink, sclera anicteric Pupils: Present: PERRL - Neck Neck exam general surgery: Present: supple, trachea midline. Absent: lymphadenopathy - Respiratory Respiratory exam: Present: CTAB. Absent: accessory muscle use, rales, rhonchi, wheezes - Cardiovascular Cardiovascular exam: Present: RRR, +S1, +S2. Absent: diastolic murmur, gallop, rubs, systolic murmur - GI/Abdominal GI/Abdominal exam: Present: normal bowel sounds, soft, no peritoneal signs. Absent: distended, tenderness - Extremities Exam Extremities exam: Present: warm, radial pulses palpable and symetrical. Absent : calf tenderness, cyanotic, pedal edema Additional comments: Tenderness on L spine area - Neurological Exam Neurological exam: Present: CN II-XII intact, oriented X3, no focal deficits. Absent: pronater drift, facial droop, speech deficit - Skin Skin exam: Present: dry, intact Internal Medicine: Result - Labs CBC & Chem 7: 03/03/17 09:09 03/03/17 09:09 Labs: Short CBC 03/03/17 Range/Units 09:09 WBC 7.0 (4.3-11.1) K/mcL Hgb 10.7 L (11.5-15.4) g/dL Hct 32.7 L (35.3-44.9) % Plt Count 206 (140-400) K/mcL Neutrophils # 5.1 (1.6-8.9) K/mcL BMP 03/03/17 09:09 Sodium 140 Potassium 3.6 Chloride 111 H Carbon Dioxide 21 BUN 17 Creatinine 1.02 Glucose 126 H Calcium 8.8 Urine 03/02/17 Range/Units 12:03 Urine Color Yellow (Yellow) Urine Clarity Clear (Clear) Urine pH 6.0 (5.0-8.0) pH Units Ur Specific [place] 1.011 (1.010-1.025) Urine Protein Negative (Neg-Trace) mg/dL Urine Glucose (UA) Normal (Normal) mg/dL Consult Discharge Plan - Plan Referrals: Shreyas Mera MD [Primary Care Provider] -
[2017-03-03] MEDS ORDERED: Ketorolac 15 MG/ML VIAL IM ONE (12:43)
[2017-03-03] MEDS: Ketorolac 30 MG/ML VIAL IVP PRN ×2 (13:09→21:42)
[2017-03-04] MEDS: *HR* Heparin 5,000 UNIT/ML VIAL SQ SCH ×2 (05:31→17:37)
[2017-03-04] MEDS: Ketorolac 30 MG/ML VIAL IVP PRN ×2 (05:32→19:52)
--- NOTE | 2017-03-04 08:05 | Electrocardiograph Report ---
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
[2017-03-04] MEDS: Budesonide/Formoterol 160/4.5 MDI IH SCH ×2 (08:24→20:38)
[2017-03-04 08:41] LABS: Basophils % 0.4 %; Eosinophils # 0.3 K/mcL (0.0-0.6); Eosinophils % 5.5 %; Hematocrit 29.7 % (35.3-44.9); Hemoglobin 9.9 g/dL (11.5-15.4); Immature Granulocytes % 0.5 % (0-4); Lymphocytes # 0.8 K/mcL (0.6-4.6); Lymphocytes % 14.5 %; Mean Corpuscular HGB Conc 33.3 g/dL (31.6-35.5); Mean Corpuscular Hemoglobin 31.6 pg (28.0-33.3); Mean Corpuscular Volume 94.9 fL (83.0-100.0); Monocytes # 0.5 K/mcL (0.0-1.3); Monocytes % 8.2 %; Platelet Count 177 K/mcL (140-400); Red Blood Count 3.13 M/mcL (3.82-4.97); Red Cell Distribution Width 14.1 % (11.5-14.5); Segmented Neutrophils % 70.9 %
[2017-03-04 08:44] LABS: INR 1.1
[2017-03-04 09:07] LABS: BUN/Creatinine Ratio 19 (6-26); Blood Urea Nitrogen 18 mg/dL (7-20); Calcium 8.7 mg/dL (8.6-10.8); Carbon Dioxide 22 mEq/L (19-29); Chloride 114 mEq/L (98-109); Glucose 105 mg/dL (70-99); Osmolality,Calculated 298 (280-300); Potassium 3.9 mEq/L (3.5-4.5); Sodium 143 mEq/L (136-145); eGFR For African Americans > 60 (> 60); eGFR For Non-African Americans 54 (> 60)
[2017-03-04] MEDS: Pantoprazole 40 MG VIAL IVP SCH (09:40)
--- NOTE | 2017-03-04 15:45 | Internal Med Progress Note ---
Date of Encounter: 03/04/17 Time of Encounter: 15:42 - Assessment and plan (1) Fall Current Visit: Yes Status: Acute Qualifiers: Encounter type: initial encounter Qualified Code(s): W19.XXXA - Unspecified fall, initial encounter (2) Hypertension Current Visit: Yes Status: Acute Assessment and plan: monitor BP. Qualifiers: Hypertension type: essential hypertension Qualified Code(s): I10 - Essential (primary) hypertension (3) Lumbar compression fracture Current Visit: Yes Status: Acute Assessment and plan: seen by DR. Heller, planned for kyphoplasty tomm low to mod risk for procedure. patient is allergic to codeine , tramadol and morphine will continue tylenol and motrin prn , also on ketorolac prn for severe pain Qualifiers: Encounter type: initial encounter Fracture type: closed Qualified Code(s) : S32.000A - Wedge compression fracture of unspecified lumbar vertebra, initial encounter for closed fracture (4) Osteopenia Current Visit: Yes Status: Chronic Qualifiers: Osteopenia location: spine Qualified Code(s): M85.88 - Other specified disorders of bone density and structure, other site (5) Atrial fibrillation Current Visit: Yes Status: Acute Assessment and plan: no RVR, stable. Qualifiers: Atrial fibrillation type: chronic Qualified Code(s): I48.2 - Chronic atrial fibrillation (6) Congestive heart failure Current Visit: No Status: Chronic Assessment and plan: not in exacerbation appreciate cardio recommendations no need for additional pre op cardiac investigations Qualifiers: Congestive heart failure type: unspecified congestive heart failure type Congestive heart failure chronicity: chronic Qualified Code(s): I50.9 - Heart failure, unspecified (7) COPD (chronic obstructive pulmonary disease) Current Visit: No Status: Chronic Assessment and plan: stable c/o cough with greenish phlegm will start mucinex today, no wheezing on exam. Qualifiers: COPD type: unspecified COPD Qualified Code(s): J44.9 - Chronic obstructive pulmonary disease, unspecified - Subjective Interval history: seen at the bedside, admitted 2/2 fall and L1 compression fracture, reports still has back pain but better than yest,c/o cough with some greenish phlegm appreciate spine consult recommendations [patient to undergo kyphoplasty tomm, cardio consulted for pre op cardiac risk assesment, low to moderate risk for the procedure. - Constitutional Vitals: Temp Pulse Resp BP Pulse Ox 98.2 F 67 17 115/68 97 03/04/17 15:15 03/04/17 15:15 03/04/17 15:15 03/04/17 15:15 03/04/17 15:15 General appearance: Present: mild distress, A&O X 3, answers questions appropriately Exam: - Head Head exam: Present: atraumatic, normocephalic - Eye Eye exam: Present: PERRL, conjuntiva pink, sclera anicteric Pupils: Present: PERRL - Neck Neck exam general surgery: Present: supple, trachea midline. Absent: lymphadenopathy - Respiratory Respiratory exam: Present: CTAB. Absent: accessory muscle use, rales, rhonchi, wheezes - Cardiovascular Cardiovascular exam: Present: RRR, +S1, +S2. Absent: diastolic murmur, gallop, rubs, systolic murmur - GI/Abdominal GI/Abdominal exam: Present: normal bowel sounds, soft, no peritoneal signs. Absent: distended, tenderness - Extremities Exam Extremities exam: Present: warm, radial pulses palpable and symetrical. Absent : calf tenderness, cyanotic, pedal edema Additional comments: Tenderness on L spine area - Neurological Exam Neurological exam: Present: CN II-XII intact, oriented X3, no focal deficits. Absent: pronater drift, facial droop, speech deficit - Skin Skin exam: Present: dry, intact Internal Medicine: Result - Labs CBC & Chem 7: 03/04/17 08:30 03/04/17 08:30 Labs: Short CBC 03/04/17 Range/Units 08:30 WBC 5.6 (4.3-11.1) K/mcL Hgb 9.9 L (11.5-15.4) g/dL Hct 29.7 L (35.3-44.9) % Plt Count 177 (140-400) K/mcL Neutrophils # 4.0 (1.6-8.9) K/mcL BMP 03/04/17 08:30 Sodium 143 Potassium 3.9 Chloride 114 H Carbon Dioxide 22 BUN 18 Creatinine 0.97 Glucose 105 H Calcium 8.7 - ABG Interpretation ABG results: PT/INR, D-dimer PT 12.0 Seconds (9.4-12.1) 03/04/17 08:30 Consult Discharge Plan - Plan Referrals: Shreyas Mera MD [Primary Care Provider] -
[2017-03-04] MEDS: Ondansetron 4 MG/2 ML VIAL IVP PRN (17:37)
--- NOTE | 2017-03-04 19:41 | Anesthesia Evaluation PreOp ---
Date of Encounter: 03/04/17 Time of Encounter: 19:38 - Past History Planned Operation: L1 Kyphoplasty Cardiac History: [place] (maintained on Plavix), CHF (maintained on Lasix), HTN ( maintained on Metoprolol), Hyperlipidemia (maintained on Pravachol), Arrhythmia (AFib maintained on ASA, Plavix (?), Metoprolol (poor Coumadin candidate re: frequent falls)), Pacemaker/ICD ([NO records re: Pacer placement available at time of interview] Pt reports current Pacer is her 2nd device and has approximately "3 years left on it"), Other ( ECHO 10/03/2016 - LVEF 60%, normal LV size & Fx. Atypical septal motion c/w paced rhythm, No evidence of PulmHtn, NO significant valvular dysfx. 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 Subjective BUE weakness. Maintained on Plavix.), Other (Dementia per reports. VERY HARD OF HEARING) Other Medical History: GERD (maintained on Carafate, Protonix), Other (Hx of Breast Ca: Right s/p lumpectomy 05/2005. Left s/p lumpectomy11/2014) Anesthesia History: No Prior Anesthetic Complications, Past Anesthesia (Appy, Jesenia, B- lumpectomy, Lipoma excisions, Skin Ca excisions, Elbow surgery/Ulnar nerve decompression(?)), Problems (SEVERE PONV. PT ALSO STATES THAT NARCOTICS "BLOW MY MIND" AND PT REPORTS HAVING BEEN JUDGED "BEING CRAZY" post- operatively. Pt very concerned about this happening again...PT requests NO Narcotic pain medicines...though selling underwriter did explain that we would do our best but that she may end up receiving some depending on her clinical status;And that Anesthesia team would be judicious in administration thereof.) Alcohol Use: none Drug use: none Medications and Allergies Albuterol Sulfate [Albuterol Inhaler] 2 puff IH Q6HR PRN 08/08/15 [History] Budesonide/Formoterol 160/4.5 [Symbicort] 2 puff IH BIDR 08/08/15 [History] Clopidogrel [Plavix] 75 mg PO DAILY 08/08/15 [History] Ferrous Sulfate 325 mg PO DAILY 08/08/15 [History] Furosemide [Lasix] 40 mg PO BID 08/08/15 [History] Metoprolol [Lopressor] 100 mg PO BID 08/08/15 [History] Multivitamin/Iron/Folic Acid [Centrum Complete Multivit Tab] 1 tab PO DAILY 06/14 [History] Potassium Chloride 70 meq PO DAILY 08/08/15 [History] [place] Oil/[place]-3 Fatty Acids [Fish Oil 500 mg Softgel] 2,000 mg PO BID [History] Sucralfate [Carafate] 1 gm PO BID 08/08/15 [History] Ergocalciferol (VITAMIN D2) [Vitamin D2] 50,000 unit PO GIPSON 10/02/16 [History] Pantoprazole Sodium [Protonix] 20 mg PO DAILY 10/02/16 [History] Pravastatin Sodium [Pravachol] 20 mg PO DAILY 10/02/16 [History] Acetaminophen [Tylenol] 325 mg PO Q6HR PRN 03/01/17 [History] Acetylcysteine [I-Zkafpr-o-Cysteine] 600 mg PO Q8H 03/01/17 [History] Ascorbate Calcium [Vitamin C] 500 mg PO DAILY 03/01/17 [History] Calcium Carbonate/Vitamin D3 [Calcium 600-Vit D3 400 Tablet] 1 tab PO DAILY 11/16 [History] Clotrimazole 1% CRM [Lotrimin 1%] 1 appl TP BID 03/01/17 [History] Docusate [Colace] 100 mg PO BID 03/01/17 [History] Donepezil [Aricept] 5 mg PO HS 03/01/17 [History] Glucosamn/[place]/C/Mn/[place] [[facility] Glucosamine Chondroitin Tb] 1 tab PO DAILY 03/01/17 [History] Ondansetron ODT [Zofran ODT] 4 mg SL Q8HR PRN 03/01/17 [History] Oxygen 1 each .ROUTE AD 03/01/17 [History] Sennosides [Senna] 17.2 mg PO HS 03/01/17 [History] Vitamin B Complex Vit C No.4 [Super B Complex] 1 tab PO DAILY 03/01/17 [History] Vitamin E (Dl,Tocopheryl Acet) [Vitamin E] 400 unit PO DAILY 03/01/17 [History] Allergies azithromycin Allergy (Verified 02/28/17 23:41) Hives Calcitonin Allergy (Verified 02/28/17 23:41) Rash Iodinated Contrast- Oral and IV Dye [Iodinated Contrast Media - Oral and] Allergy (Verified 02/28/17 23:41) Rash Penicillins Allergy (Verified 02/28/17 23:41) Hives Sulfa (Sulfonamide Antibiotics) Allergy (Verified 02/28/17 23:41) Hives aspirin Adverse Reaction (Verified 02/28/17 23:41) See Comments TINNITUS codeine Adverse Reaction (Verified 02/28/17 23:41) Hallucinating Estrogens Adverse Reaction (Verified 02/28/17 23:41) Cramping of the Muscles morphine Adverse Reaction (Verified 02/28/17 23:41) Hallucinating Oxycodone Adverse Reaction (Verified 02/28/17 23:41) Hallucinating tramadol Adverse Reaction (Verified 02/28/17 23:41) Hallucinating - Meds/Allergy Pre-op Review Medications Reviewed: Yes Allergies Reviewed: Yes Beta Blockers on Current Med List: Yes (Metoprolol) If Beta Blockers taken, Date/Time (Last Dose taken): 03/04/17 @ 0940 Anesthesia Results - Labs 03/04/17 08:30 03/04/17 08:30 Laboratory Tests 10/08/16 03/01/17 03/01/17 08:45 05:23 07:43 PT INR POC Glucose 117 H Est Mean Plasma Glucose 114 Hemoglobin A1c 5.6 Calcium Magnesium 1.6 03/04/17 03/04/17 08:30 08:30 PT 12.0 INR 1.1 POC Glucose Est Mean Plasma Glucose Hemoglobin A1c Calcium 8.7 Magnesium Laboratory Results Impressions Cervical Spine CT 03/01/17 01:59 IMPRESSION: No acute abnormality of the cervical spine. Moderate to severe mid cervical spine spondylosis. D/ / 03/01/2017 07:33:42 Jabari Viveros MD / [facility] Interpreting Provider: Jabari Viveros MD Lumbar Spine CT 03/01/17 01:59 IMPRESSION: 1. Acute mild compression fracture of the superior endplate of L1 vertebral body with minimal retropulsion. 2. Multilevel moderate lumbar spine spondylosis. D/ / 03/01/2017 07:34:25 Jabari Viveros MD / [facility] Interpreting Provider: Jabari Viveros MD Knee X-Ray 03/01/17 03:18 IMPRESSION: Osteoarthrosis with no definite fracture. D/ / Jaya Parks MD / Jaya Parks MD Interpreting Provider: Jaya Parks MD Hip X-Ray 03/01/17 23:52 IMPRESSION: No definite fracture. D/ / Jaya Parks MD / Jaya Parks MD Interpreting Provider: Jaya Parks MD - Imaging EKG: image reviewed (64bpm Ventricular Paced) Anesthesia Exam Vital Signs Temp Pulse Resp BP Pulse Ox 03/04/17 15:15 98.2 F 67 17 115/68 97 03/04/17 11:28 97.9 F 69 17 119/62 97 03/04/17 08:24 18 96 03/04/17 07:33 98.3 F 66 16 138/68 95 03/04/17 04:34 98.6 F 66 18 134/57 92 03/04/17 00:10 98.6 F 73 16 121/71 98 03/03/17 20:36 16 98 03/03/17 20:03 98.6 F 62 18 150/71 94 Intake and Output 03/04/17 03/04/17 03/04/17 07:59 15:59 23:59 Intake Total 480 / 480 Output Total 200 / 200 Balance -200 / -200 480 / 480 Intake: Oral 480 / 480 Output: Urine 200 / 200 Other: Meal Lunch Percent of Meal Consumed 85% Stool Size Large Moderate Stool Consistency soft soft Stool Characteristics Normal for Patient Stool Color Brown Brown # Voids 1 1 Height: 5'4" Weight: 182# BMI = 31 - HEENT Pupil (Motor): Pupils equal, EOMI Mallampati: II Teeth: Edentulous Oral Opening: Greater than 3 - SEWER PIPE LAYER LOC: Oriented SEWER PIPE LAYER Motor: Normal RUE, Normal LUE, Normal RLE, Normal LLE, Normal Face SEWER PIPE LAYER Sensory: Normal: RUE, LUE, RLE, LLE, Face - Cardiac Rhythm: Irregular Murmur: Systolic - Pulmonary Breath Sounds: bilateral Clear Respiratory Effort: Symmetrical Anesthesia Assess/Plan ASA Score: 4 (Afib, CAD, CHF hx, HTN, Chol, GERD, COPD, Obesity, CVA Hx) Modified Nereyda Scale for Level of Consciousness: Cooperative, oriented, and tranquil Anesthetic Plan: General Monitoring Plan: Standard Monitors Recovery Plan: PACU Anes Supervising Prov Stmt: Pt seen/evaluated, R&B Discussed, questions answered and consent obtained. Leon Silvestre MD
[2017-03-05] MEDS: Ketorolac 30 MG/ML VIAL IVP PRN ×3 (02:16→18:43)
[2017-03-05] MEDS: Acetaminophen 325 MG TABLET PO PRN (03:06)
[2017-03-05] MEDS: *HR* Heparin 5,000 UNIT/ML VIAL SQ SCH ×2 (03:27→18:40)
[2017-03-05] MEDS: Pantoprazole 40 MG VIAL IVP SCH (07:04)
[2017-03-05 08:24] LABS: Basophils % 0.5 %; Eosinophils # 0.3 K/mcL (0.0-0.6); Eosinophils % 5.5 %; Hematocrit 29.7 % (35.3-44.9); Hemoglobin 9.8 g/dL (11.5-15.4); Immature Granulocytes % 0.3 % (0-4); Immature Platelets 1.6 % (1.1-6.1); Lymphocytes # 0.9 K/mcL (0.6-4.6); Lymphocytes % 15.8 %; Mean Corpuscular Hemoglobin 31.3 pg (28.0-33.3); Mean Corpuscular Volume 94.9 fL (83.0-100.0); Mean Platelet Volume 9.2 fL (9.4-12.4); Monocytes # 0.6 K/mcL (0.0-1.3); Monocytes % 9.7 %; Neutrophils # 4.1 K/mcL (1.6-8.9); Platelet Count 215 K/mcL (140-400); Red Blood Count 3.13 M/mcL (3.82-4.97); Red Cell Distribution Width 14.1 % (11.5-14.5); Segmented Neutrophils % 68.2 %
[2017-03-05] MEDS: Budesonide/Formoterol 160/4.5 MDI IH SCH ×2 (08:29→20:37)
[2017-03-05 08:35] LABS: BUN/Creatinine Ratio 20 (6-26); Blood Urea Nitrogen 21 mg/dL (7-20); Calcium 8.9 mg/dL (8.6-10.8); Carbon Dioxide 21 mEq/L (19-29); Chloride 114 mEq/L (98-109); Glucose 98 mg/dL (70-99); Osmolality,Calculated 299 (280-300); Sodium 143 mEq/L (136-145); eGFR For African Americans > 60 (> 60); eGFR For Non-African Americans 50 (> 60)
[2017-03-05] MEDS: Ondansetron 4 MG/2 ML VIAL IVP PRN (09:00)
[2017-03-05] MEDS ORDERED: *HR* Propofol 200 MG/20 ML VIAL IVP ONE (09:09)
[2017-03-05] MEDS ORDERED: *HR* FentaNYL (PF) 100 MCG/2 ML VIAL ONE (09:09)
[2017-03-05] MEDS ORDERED: Lidocaine -MPF 2% 2 ML VIAL ONE ×2 (09:11)
[2017-03-05] MEDS ORDERED: Lidocaine -MPF 4% 5 ML AMPUL ONE (09:15)
[2017-03-05] MEDS ORDERED: *HR* Succinylcholine 200 MG/10 ML VIAL IVP ONE (09:52)
[2017-03-05] MEDS ORDERED: *HR* Rocuronium Bromide 50 MG/5 ML VIAL ONE (10:12)
[2017-03-05] MEDS ORDERED: Clindamycin 900 MG/50 ML 900 MG/50 ML IV.SOLN IVPB ONE (10:28)
[2017-03-05] MEDS ORDERED: Ondansetron 4 MG/2 ML VIAL ONE (10:43)
[2017-03-05] MEDS ORDERED: Dexamethasone 4 MG/ML VIAL ONE (10:43)
[2017-03-05] MEDS ORDERED: Neostigmine Methylsulfate 3 MG/3 ML SYRINGE ONE (10:43)
--- NOTE | 2017-03-05 10:48 | Orthopedic Operative Note ---
Date of procedure: 03/05/17 Pre-op diagnosis: Osteopenia, vertebral compression fracture Post-op diagnosis: same Operation/Findings: Kyphoplasty L1: The patient was brought to the operative theater where successful endotracheal anesthesia was performed. The patient was given antibiotics prior to the start of the procedure. Compression boots and stockings were used for deep vein thrombosis. Patient was then turned prone on a well-padded Titus table. The back was prepped and draped in the usual sterile fashion. 2 C-arm fluorographic devices were brought into position such that simultaneous AP and lateral views centered over the involved L1 vertebral body could be performed. A stab incision was made over the superior-lateral aspect of the left L1 pedicle. We introduced a Jamshidi needle into the L1 vertebral body via a transpedicular route. We took biplanar images of the vertebral body using fluorography. The needle was found to be in appropriate position and within the confines of the L1 vertebral body. We then introduced a biopsy trocar and obtained a biopsy specimen of the L1 vertebral body. This was sent for pathologic evaluation. We then removed the biopsy trocar and introduced a Kyphon balloon. The balloon was insufflated to approximately 4mL volume and subsequently deflated. The balloon was seen to expand within the confines of the L1 vertebral body on biplanar fluorographic views. The balloon was then removed. We then inserted cement trochars and sequentially placed bone cement within the confines of the L1 vertebral body. We took intermittent fluorographic views which confirmed satisfactory placement of the cement. After completion of the cementation process, the trocar was removed. We took final AP and lateral fluorographic views. We then closed the stab incision with 2-0 nylon suture. A Band-Aid was placed over the wound. The patient was turned supine on a hospital bed and extubated. All sponge instrument and needle counts were correct at the end of the procedure. The patient tolerated the procedure well without complications. Anesthesia: GETA Surgeon: Cedric Heller Jr Estimated blood loss (cc): 2 Specimen: L1 vertebral biopsy Condition: stable Disposition: PACU
[2017-03-05] MEDS ORDERED: *HR* HYDROmorphone (PF) 1 MG/ML SYRINGE IVP PRN (11:06)
[2017-03-05] MEDS ORDERED: Ondansetron 4 MG/2 ML VIAL IVP PRN (11:06)
[2017-03-05] MEDS ORDERED: *HR* Labetalol 20 MG/4 ML SYRINGE IVP PRN (11:18)
[2017-03-05] MEDS ORDERED: Albuterol 2.5 MG/3 ML NEBULIZER IH ONE (11:55)
[2017-03-05] MEDS ORDERED: Albuterol 2.5 MG/3 ML NEBULIZER ONE (11:56)
[2017-03-05] MEDS ORDERED: Furosemide 20 MG/2 ML VIAL IVP ONE ×2 (12:15→12:16)
[2017-03-05] MEDS: Clindamycin 600 MG/50 ML 600 MG/50 ML IV.SOLN IVPB SCH (16:19)
[2017-03-05] MEDS: Ringers Solution, Lactated 1,000 ML IVC SCH (16:20)
--- NOTE | 2017-03-05 16:49 | Internal Med Progress Note ---
Date of Encounter: 03/05/17 Time of Encounter: 16:47 - Assessment and plan (1) Fall Current Visit: Yes Status: Acute Qualifiers: Encounter type: initial encounter Qualified Code(s): W19.XXXA - Unspecified fall, initial encounter (2) Hypertension Current Visit: Yes Status: Acute Assessment and plan: monitor BP. Qualifiers: Hypertension type: essential hypertension Qualified Code(s): I10 - Essential (primary) hypertension (3) Lumbar compression fracture Current Visit: Yes Status: Acute Assessment and plan: seen by DR. Heller, s/p kyphoplasty today patient is allergic to codeine , tramadol and morphine will continue ketorolac IV prn for severe pain. DVT prophylaxis, post op care as per spine surgery Qualifiers: Encounter type: initial encounter Fracture type: closed Qualified Code(s) : S32.000A - Wedge compression fracture of unspecified lumbar vertebra, initial encounter for closed fracture (4) Osteopenia Current Visit: Yes Status: Chronic Qualifiers: Osteopenia location: spine Qualified Code(s): M85.88 - Other specified disorders of bone density and structure, other site (5) Atrial fibrillation Current Visit: Yes Status: Acute Assessment and plan: no RVR, stable. Qualifiers: Atrial fibrillation type: chronic Qualified Code(s): I48.2 - Chronic atrial fibrillation (6) Congestive heart failure Current Visit: No Status: Chronic Assessment and plan: not in exacerbation continue home med Qualifiers: Congestive heart failure type: unspecified congestive heart failure type Congestive heart failure chronicity: chronic Qualified Code(s): I50.9 - Heart failure, unspecified (7) COPD (chronic obstructive pulmonary disease) Current Visit: No Status: Chronic Assessment and plan: stable Qualifiers: COPD type: unspecified COPD Qualified Code(s): J44.9 - Chronic obstructive pulmonary disease, unspecified - Subjective Interval history: seen at the bedside, post op and is drowsy, admitted 2/2 fall and L1 compression fracture,s/p kyphoplasty today. - Constitutional Vitals: Temp Pulse Resp BP Pulse Ox 97 F L 59 9 119/65 96 03/05/17 16:21 03/05/17 16:21 03/05/17 16:21 03/05/17 16:21 03/05/17 16:21 General appearance: Present: A&O X 3, answers questions appropriately Exam: neck- supple chest- b/l clear, cvs-s1 and s2, no mr//g abd-soft, no tender, bs are present ext- no edema neuro- no focal deficit Internal Medicine: Result - Labs CBC & Chem 7: 03/05/17 08:16 03/05/17 08:16 Labs: Short CBC 03/05/17 Range/Units 08:16 WBC 6.0 (4.3-11.1) K/mcL Hgb 9.8 L (11.5-15.4) g/dL Hct 29.7 L (35.3-44.9) % Plt Count 215 (140-400) K/mcL Neutrophils # 4.1 (1.6-8.9) K/mcL BMP 03/05/17 08:16 Sodium 143 Potassium 4.0 Chloride 114 H Carbon Dioxide 21 BUN 21 H Creatinine 1.05 Glucose 98 Calcium 8.9 - ABG Interpretation ABG results: PT/INR, D-dimer PT 12.0 Seconds (9.4-12.1) 03/04/17 08:30 - Impressions Impressions Fluoroscopy 03/05/17 00:00 IMPRESSION: Intraprocedural fluoroscopic spot images as above. See separate procedure report for more information. D/ /05/2017 11:30:29 Celestino Olvera MD / [facility] Interpreting Provider: Celestino Olvera MD Lumbar Spine X-Ray 03/05/17 00:00 IMPRESSION: Intraprocedural fluoroscopic spot images as above. See separate procedure report for more information. D/ /05/2017 11:30:29 Celestino Olvera MD / [facility] Interpreting Provider: Celestino Olvera MD Xray Preliminary Report 03/05/17 00:00 IMPRESSION: Intraprocedural fluoroscopic spot images as above. See separate procedure report for more information. D/ /05/2017 11:30:29 Celestino Olvera MD / [facility] Interpreting Provider: Celestino Olvera MD Chest X-Ray 03/05/17 11:52 IMPRESSION: Mild pulmonary vascular congestion and edema. Trace bilateral pleural effusions. D/ / Madison Alarcon MD / Madison Alarcon MD Interpreting Provider: Madison Alarcon MD - VTE Documentation of Mechanical Device: Intermittent pneumatic compression device Consult Discharge Plan - Plan Referrals: Shreyas Mera MD [Primary Care Provider] -
[2017-03-06] MEDS: Ringers Solution, Lactated 1,000 ML IVC SCH ×2 (00:10→21:07)
[2017-03-06] MEDS: Clindamycin 600 MG/50 ML 600 MG/50 ML IV.SOLN IVPB SCH (00:10)
[2017-03-06] MEDS: Ketorolac 30 MG/ML VIAL IVP PRN ×3 (00:12→19:46)
[2017-03-06] MEDS: *HR* Heparin 5,000 UNIT/ML VIAL SQ SCH ×2 (06:21→16:38)
[2017-03-06] MEDS: Ibuprofen 400 MG TABLET PO PRN ×3 (09:17→23:56)
[2017-03-06 10:23] LABS: Basophils % 0.2 %; Eosinophils # 0.1 K/mcL (0.0-0.6); Eosinophils % 1.9 %; Hematocrit 27.5 % (35.3-44.9); Immature Granulocytes % 0.7 % (0-4); Immature Platelets 1.4 % (1.1-6.1); Lymphocytes # 0.6 K/mcL (0.6-4.6); Lymphocytes % 10.4 %; Mean Corpuscular HGB Conc 32.7 g/dL (31.6-35.5); Mean Corpuscular Hemoglobin 31.9 pg (28.0-33.3); Mean Corpuscular Volume 97.5 fL (83.0-100.0); Mean Platelet Volume 9.2 fL (9.4-12.4); Monocytes # 0.4 K/mcL (0.0-1.3); Monocytes % 6.6 %; Neutrophils # 4.6 K/mcL (1.6-8.9); Platelet Count 211 K/mcL (140-400); Red Blood Count 2.82 M/mcL (3.82-4.97); Segmented Neutrophils % 80.2 %
[2017-03-06 10:35] LABS: Calcium 8.5 mg/dL (8.6-10.8); Potassium 3.9 mEq/L (3.5-4.5)
[2017-03-06] MEDS: Budesonide/Formoterol 160/4.5 MDI IH SCH ×2 (11:06→21:13)
--- NOTE | 2017-03-06 15:24 | Internal Med Progress Note ---
Date of Encounter: 03/06/17 Time of Encounter: 15:23 - Assessment and plan (1) Fall Current Visit: Yes Status: Acute Qualifiers: Encounter type: initial encounter Qualified Code(s): W19.XXXA - Unspecified fall, initial encounter (2) Hypertension Current Visit: Yes Status: Acute Assessment and plan: monitor BP. Qualifiers: Hypertension type: essential hypertension Qualified Code(s): I10 - Essential (primary) hypertension (3) Lumbar compression fracture Current Visit: Yes Status: Acute Assessment and plan: seen by DR. Heller, s/p kyphoplasty yesterday patient is allergic to codeine , tramadol and morphine will continue ketorolac IV prn for severe pain. DVT prophylaxis, post op care as per spine surgery Qualifiers: Encounter type: initial encounter Fracture type: closed Qualified Code(s) : S32.000A - Wedge compression fracture of unspecified lumbar vertebra, initial encounter for closed fracture (4) Osteopenia Current Visit: Yes Status: Chronic Qualifiers: Osteopenia location: spine Qualified Code(s): M85.88 - Other specified disorders of bone density and structure, other site (5) Atrial fibrillation Current Visit: Yes Status: Acute Assessment and plan: no RVR, stable. Qualifiers: Atrial fibrillation type: chronic Qualified Code(s): I48.2 - Chronic atrial fibrillation (6) Congestive heart failure Current Visit: No Status: Chronic Assessment and plan: not in exacerbation continue home med Qualifiers: Congestive heart failure type: unspecified congestive heart failure type Congestive heart failure chronicity: chronic Qualified Code(s): I50.9 - Heart failure, unspecified (7) COPD (chronic obstructive pulmonary disease) Current Visit: No Status: Chronic Assessment and plan: stable Qualifiers: COPD type: unspecified COPD Qualified Code(s): J44.9 - Chronic obstructive pulmonary disease, unspecified - Subjective Interval history: seen at the bedside, admitted 2/2 fall and L1 compression fracture,s/p kyphoplasty , postop day 1. Postoperative care been management or 2. Patient reports that pain is much better today, working with rehabilitation. May need inpatient rehabilitation on discharge. - Constitutional Vitals: Temp Pulse Resp BP Pulse Ox 97.8 F 61 16 137/79 94 03/06/17 11:00 03/06/17 11:00 03/06/17 11:08 03/06/17 11:00 03/06/17 11:08 General appearance: Present: A&O X 3, answers questions appropriately Exam: neck- supple chest- b/l clear, cvs-s1 and s2, no mr//g abd-soft, no tender, bs are present ext- no edema neuro- no focal deficit Internal Medicine: Result - Labs CBC & Chem 7: 03/06/17 10:12 03/06/17 10:12 Labs: Short CBC 03/06/17 Range/Units 10:12 WBC 5.8 (4.3-11.1) K/mcL Hgb 9.0 L (11.5-15.4) g/dL Hct 27.5 L (35.3-44.9) % Plt Count 211 (140-400) K/mcL Neutrophils # 4.6 (1.6-8.9) K/mcL BMP 03/06/17 10:12 Sodium 141 Potassium 3.9 Chloride 109 Carbon Dioxide 22 BUN 23 H Creatinine 1.14 H Glucose 110 H Calcium 8.5 L - ABG Interpretation ABG results: PT/INR, D-dimer PT 12.0 Seconds (9.4-12.1) 03/04/17 08:30 - VTE Documentation of Mechanical Device: Intermittent pneumatic compression device Consult Discharge Plan - Plan Referrals: Shreyas Mera MD [Primary Care Provider] -
[2017-03-07] MEDS: Ketorolac 30 MG/ML VIAL IVP PRN ×3 (02:13→22:24)
[2017-03-07] MEDS: Ondansetron 4 MG/2 ML VIAL IVP PRN ×3 (02:29→15:57)
[2017-03-07] MEDS ORDERED: Acetaminophen 325 MG TABLET PO PRN (04:04)
[2017-03-07] MEDS: Acetaminophen IV 1,000 MG/100 ML INFUS..BTL IVPB PRN ×2 (04:38→11:23)
[2017-03-07] MEDS: *HR* Heparin 5,000 UNIT/ML VIAL SQ SCH ×2 (04:45→16:14)
[2017-03-07] MEDS: Pantoprazole 40 MG in 0.9 % Sodium Chloride Mini Bag 100 ML IVPB SCH ×2 (05:35→09:50)
[2017-03-07] MEDS: Budesonide/Formoterol 160/4.5 MDI IH SCH ×2 (08:13→20:23)
[2017-03-07] MEDS: Sucralfate 1 GM TABLET PO SCH ×2 (09:51→15:57)
[2017-03-07 10:11] LABS: Basophils % 0.6 %; Eosinophils # 0.4 K/mcL (0.0-0.6); Eosinophils % 7.2 %; Hematocrit 28.5 % (35.3-44.9); Hemoglobin 9.2 g/dL (11.5-15.4); Immature Granulocytes % 0.6 % (0-4); Lymphocytes # 0.8 K/mcL (0.6-4.6); Mean Corpuscular HGB Conc 32.3 g/dL (31.6-35.5); Mean Corpuscular Hemoglobin 31.6 pg (28.0-33.3); Mean Corpuscular Volume 97.9 fL (83.0-100.0); Mean Platelet Volume 9.4 fL (9.4-12.4); Monocytes # 0.5 K/mcL (0.0-1.3); Monocytes % 8.9 %; Neutrophils # 3.6 K/mcL (1.6-8.9); Platelet Count 199 K/mcL (140-400); Red Blood Count 2.91 M/mcL (3.82-4.97); Red Cell Distribution Width 14.3 % (11.5-14.5); Segmented Neutrophils % 67.7 %
[2017-03-07 10:21] LABS: BUN/Creatinine Ratio 22 (6-26); Blood Urea Nitrogen 22 mg/dL (7-20); Calcium 8.8 mg/dL (8.6-10.8); Carbon Dioxide 25 mEq/L (19-29); Chloride 111 mEq/L (98-109); Glucose 102 mg/dL (70-99); Osmolality,Calculated 296 (280-300); Potassium 3.8 mEq/L (3.5-4.5); Sodium 141 mEq/L (136-145); eGFR For African Americans > 60 (> 60); eGFR For Non-African Americans 53 (> 60)
--- NOTE | 2017-03-07 10:28 | Electrocardiograph Report ---
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
[2017-03-07] MEDS: Ibuprofen 400 MG TABLET PO PRN ×2 (14:00→20:57)
--- NOTE | 2017-03-07 16:41 | Internal Med Progress Note ---
Date of Encounter: 03/07/17 Time of Encounter: 16:39 - Assessment and plan (1) Fall Current Visit: Yes Status: Acute Qualifiers: Encounter type: initial encounter Qualified Code(s): W19.XXXA - Unspecified fall, initial encounter (2) Hypertension Current Visit: Yes Status: Acute Assessment and plan: monitor BP. Qualifiers: Hypertension type: essential hypertension Qualified Code(s): I10 - Essential (primary) hypertension (3) Lumbar compression fracture Current Visit: Yes Status: Acute Assessment and plan: seen by DR. Heller, s/p kyphoplasty POD#2 patient is allergic to codeine , tramadol and morphine will continue ketorolac IV prn for severe pain. DVT prophylaxis, post op care, bedside rehab Qualifiers: Encounter type: initial encounter Fracture type: closed Qualified Code(s) : S32.000A - Wedge compression fracture of unspecified lumbar vertebra, initial encounter for closed fracture (4) Osteopenia Current Visit: Yes Status: Chronic Qualifiers: Osteopenia location: spine Qualified Code(s): M85.88 - Other specified disorders of bone density and structure, other site (5) Atrial fibrillation Current Visit: Yes Status: Acute Assessment and plan: no RVR, stable. Qualifiers: Atrial fibrillation type: chronic Qualified Code(s): I48.2 - Chronic atrial fibrillation (6) Congestive heart failure Current Visit: No Status: Chronic Assessment and plan: not in exacerbation continue home med Qualifiers: Congestive heart failure type: unspecified congestive heart failure type Congestive heart failure chronicity: chronic Qualified Code(s): I50.9 - Heart failure, unspecified (7) COPD (chronic obstructive pulmonary disease) Current Visit: No Status: Chronic Assessment and plan: stable Qualifiers: COPD type: unspecified COPD Qualified Code(s): J44.9 - Chronic obstructive pulmonary disease, unspecified - Subjective Interval history: seen at the bedside, admitted 2/2 fall and L1 compression fracture,s/p kyphoplasty , postop day 2. Postoperatively doing well. Patient reports that pain is much better today, working with rehabilitation. May need inpatient rehabilitation on discharge. - Constitutional Vitals: Temp Pulse Resp BP Pulse Ox 97.9 F 62 16 137/56 97 03/07/17 16:32 03/07/17 16:32 03/07/17 16:32 03/07/17 16:32 03/07/17 16:32 General appearance: Present: A&O X 3, answers questions appropriately Exam: neck- supple chest- b/l clear, cvs-s1 and s2, no mr//g abd-soft, no tender, bs are present ext- no edema neuro- no focal deficit Internal Medicine: Result - Labs CBC & Chem 7: 03/07/17 09:55 03/07/17 09:55 Labs: Short CBC 03/07/17 Range/Units 09:55 WBC 5.3 (4.3-11.1) K/mcL Hgb 9.2 L (11.5-15.4) g/dL Hct 28.5 L (35.3-44.9) % Plt Count 199 (140-400) K/mcL Neutrophils # 3.6 (1.6-8.9) K/mcL BMP 03/07/17 09:55 Sodium 141 Potassium 3.8 Chloride 111 H Carbon Dioxide 25 BUN 22 H Creatinine 0.99 Glucose 102 H Calcium 8.8 - ABG Interpretation ABG results: PT/INR, D-dimer PT 12.0 Seconds (9.4-12.1) 03/04/17 08:30 - VTE Documentation of Mechanical Device: Intermittent pneumatic compression device Consult Discharge Plan - Plan Referrals: Shreyas Mera MD [Primary Care Provider] -
[2017-03-08] MEDS: Ibuprofen 400 MG TABLET PO PRN ×2 (05:24→15:55)
[2017-03-08] MEDS: *HR* Heparin 5,000 UNIT/ML VIAL SQ SCH ×2 (05:24→15:56)
[2017-03-08] MEDS: Budesonide/Formoterol 160/4.5 MDI IH SCH ×2 (07:52→20:18)
[2017-03-08] MEDS: Ketorolac 30 MG/ML VIAL IVP PRN (07:56)
[2017-03-08] MEDS: Sucralfate 1 GM TABLET PO SCH ×2 (07:57→15:56)
--- NOTE | 2017-03-08 13:47 | Internal Med Progress Note ---
Date of Encounter: 03/08/17 Time of Encounter: 13:44 - Assessment and plan (1) Fall Current Visit: Yes Status: Acute Qualifiers: Encounter type: initial encounter Qualified Code(s): W19.XXXA - Unspecified fall, initial encounter (2) Hypertension Current Visit: Yes Status: Acute Assessment and plan: monitor BP. Qualifiers: Hypertension type: essential hypertension Qualified Code(s): I10 - Essential (primary) hypertension (3) Lumbar compression fracture Current Visit: Yes Status: Acute Assessment and plan: seen by DR. Heller, s/p kyphoplasty POD#3 patient is allergic to codeine , tramadol and morphine will continue ketorolac IV prn for severe pain, tylenol for mild/mod pain. DVT prophylaxis, post op care, bedside rehab Qualifiers: Encounter type: initial encounter Fracture type: closed Qualified Code(s) : S32.000A - Wedge compression fracture of unspecified lumbar vertebra, initial encounter for closed fracture (4) Osteopenia Current Visit: Yes Status: Chronic Qualifiers: Osteopenia location: spine Qualified Code(s): M85.88 - Other specified disorders of bone density and structure, other site (5) Atrial fibrillation Current Visit: Yes Status: Acute Assessment and plan: no RVR, stable. Qualifiers: Atrial fibrillation type: chronic Qualified Code(s): I48.2 - Chronic atrial fibrillation (6) Congestive heart failure Current Visit: No Status: Chronic Assessment and plan: not in exacerbation, c/o sob at night. will restart her home dose of lasix today. continue home med Qualifiers: Congestive heart failure type: unspecified congestive heart failure type Congestive heart failure chronicity: chronic Qualified Code(s): I50.9 - Heart failure, unspecified (7) COPD (chronic obstructive pulmonary disease) Current Visit: No Status: Chronic Assessment and plan: stable Qualifiers: COPD type: unspecified COPD Qualified Code(s): J44.9 - Chronic obstructive pulmonary disease, unspecified - Subjective Interval history: seen at the bedside, admitted 2/2 fall and L1 compression fracture,s/p kyphoplasty , postop day 3. Postoperatively doing well. Patient reports that pain is getting better, working with rehabilitation. reports that she was sob at night, Chest sounds clear on exam today. awaiting approval for inpatient rehabilitation on discharge. - Constitutional Vitals: Temp Pulse Resp BP Pulse Ox 98.5 F 68 16 149/83 94 03/08/17 10:07 03/08/17 10:07 03/08/17 10:07 03/08/17 10:07 03/08/17 10:07 General appearance: Present: A&O X 3, answers questions appropriately Exam: neck- supple chest- b/l clear, cvs-s1 and s2, no mr//g abd-soft, no tender, bs are present ext- no edema neuro- no focal deficit Internal Medicine: Result - Labs CBC & Chem 7: 03/07/17 09:55 03/07/17 09:55 - ABG Interpretation ABG results: PT/INR, D-dimer PT 12.0 Seconds (9.4-12.1) 03/04/17 08:30 - VTE Documentation of Mechanical Device: Intermittent pneumatic compression device Consult Discharge Plan - Plan Referrals: Shreyas Mera MD [Primary Care Provider] -
[2017-03-08] MEDS: Furosemide 20 MG TABLET PO SCH ×2 (15:56→21:22)
[2017-03-08] MEDS ORDERED: Sennosides 8.6 MG TABLET PO SCH (21:00)
[2017-03-08] MEDS: Lactobacillus 1 EACH CAP.SPRINK PO SCH (21:20)
[2017-03-08] MEDS: Acetaminophen 325 MG TABLET PO PRN (21:20)
[2017-03-09] MEDS: Ibuprofen 400 MG TABLET PO PRN ×2 (01:15→08:45)
[2017-03-09] MEDS: Ondansetron 4 MG/2 ML VIAL IVP PRN (01:18)
[2017-03-09] MEDS: Acetaminophen 325 MG TABLET PO PRN (06:47)
[2017-03-09] MEDS: *HR* Heparin 5,000 UNIT/ML VIAL SQ SCH (07:07)
[2017-03-09] MEDS: Furosemide 20 MG TABLET PO SCH (07:46)
[2017-03-09] MEDS: Lactobacillus 1 EACH CAP.SPRINK PO SCH (07:46)
[2017-03-09] MEDS: Sucralfate 1 GM TABLET PO SCH (07:46)
[2017-03-09] MEDS: Budesonide/Formoterol 160/4.5 MDI IH SCH (08:27)
[2017-03-09] MEDS ORDERED: Pantoprazole 40 MG VIAL IVP SCH (09:00)
--- NOTE | 2017-03-09 10:32 | Discharge Summary ---
Date of Encounter: 03/09/17 Time of Encounter: 10:28 - Discharge Diagnosis (1) Fall Priority: Primary Status: Acute Qualifiers: Encounter type: initial encounter Qualified Code(s): W19.XXXA - Unspecified fall, initial encounter (2) Hypertension Priority: Secondary Status: Acute Qualifiers: Hypertension type: essential hypertension Qualified Code(s): I10 - Essential (primary) hypertension (3) Lumbar compression fracture Priority: Primary Status: Acute Qualifiers: Encounter type: initial encounter Fracture type: closed Qualified Code(s) : S32.000A - Wedge compression fracture of unspecified lumbar vertebra, initial encounter for closed fracture (4) Osteopenia Priority: Secondary Status: Chronic Qualifiers: Osteopenia location: spine Qualified Code(s): M85.88 - Other specified disorders of bone density and structure, other site (5) Atrial fibrillation Priority: Secondary Status: Acute Qualifiers: Atrial fibrillation type: chronic Qualified Code(s): I48.2 - Chronic atrial fibrillation (6) Congestive heart failure Priority: Secondary Status: Chronic Qualifiers: Congestive heart failure type: unspecified congestive heart failure type Congestive heart failure chronicity: chronic Qualified Code(s): I50.9 - Heart failure, unspecified (7) COPD (chronic obstructive pulmonary disease) Priority: Secondary Status: Chronic Qualifiers: COPD type: unspecified COPD Qualified Code(s): J44.9 - Chronic obstructive pulmonary disease, unspecified - Discharge Medications Prescriptions: Ibuprofen [Motrin] 400 mg PO Q6HR PRN #20 tablet PRN Reason: Mild Pain - 1st line Ketorolac [Toradol] 15 mg IV Q6HR PRN #30 vial PRN Reason: Pain GuaiFENesin ER [Mucinex] 600 mg PO BID 10 Days Lactobacillus [Culturelle] 1 each PO BID 30 Days Home Medications: Albuterol Sulfate [Albuterol Inhaler] 2 puff IH Q6HR PRN 08/08/15 [History] Budesonide/Formoterol 160/4.5 [Symbicort] 2 puff IH BIDR 08/08/15 [History] Clopidogrel [Plavix] 75 mg PO DAILY 08/08/15 [History] Ferrous Sulfate 325 mg PO DAILY 08/08/15 [History] Furosemide [Lasix] 40 mg PO BID 08/08/15 [History] Metoprolol [Lopressor] 100 mg PO BID 08/08/15 [History] Multivitamin/Iron/Folic Acid [Centrum Complete Multivit Tab] 1 tab PO DAILY 06/14 [History] Potassium Chloride 70 meq PO DAILY 08/08/15 [History] [place] Oil/[place]-3 Fatty Acids [Fish Oil 500 mg Softgel] 2,000 mg PO BID [History] Sucralfate [Carafate] 1 gm PO BID 08/08/15 [History] Ergocalciferol (VITAMIN D2) [Vitamin D2] 50,000 unit PO GIPSON 10/02/16 [History] Pantoprazole Sodium [Protonix] 20 mg PO DAILY 10/02/16 [History] Pravastatin Sodium [Pravachol] 20 mg PO DAILY 10/02/16 [History] Acetaminophen [Tylenol] 325 mg PO Q6HR PRN 03/01/17 [History] Acetylcysteine [I-Mcfxht-h-Cysteine] 600 mg PO Q8H 03/01/17 [History] Ascorbate Calcium [Vitamin C] 500 mg PO DAILY 03/01/17 [History] Calcium Carbonate/Vitamin D3 [Calcium 600-Vit D3 400 Tablet] 1 tab PO DAILY 11/16 [History] Clotrimazole 1% CRM [Lotrimin 1%] 1 appl TP BID 03/01/17 [History] Docusate [Colace] 100 mg PO BID 03/01/17 [History] Donepezil [Aricept] 5 mg PO HS 03/01/17 [History] Glucosamn/Condroitn/C/Mn/[place] [Cvs Glucosamine Chondroitin Tb] 1 tab PO DAILY 03/01/17 [History] Ondansetron ODT [Zofran ODT] 4 mg SL Q8HR PRN 03/01/17 [History] Oxygen 1 each .ROUTE AD 03/01/17 [History] Sennosides [Senna] 17.2 mg PO HS 03/01/17 [History] Vitamin B Complex Vit C No.4 [Super B Complex] 1 tab PO DAILY 03/01/17 [History] Vitamin E (Dl,Tocopheryl Acet) [Vitamin E] 400 unit PO DAILY 03/01/17 [History] GuaiFENesin ER [Mucinex] 600 mg PO BID 10 Days 03/09/17 [Rx] Ibuprofen [Motrin] 400 mg PO Q6HR PRN #20 tablet 03/09/17 [Rx] Ketorolac [Toradol] 15 mg IV Q6HR PRN #30 vial 03/09/17 [Rx] Lactobacillus [Culturelle] 1 each PO BID 30 Days 03/09/17 [Rx] Allergies/Adverse Reactions: Allergies azithromycin Allergy (Verified 02/28/17 23:41) Hives Calcitonin Allergy (Verified 02/28/17 23:41) Rash Iodinated Contrast- Oral and IV Dye [Iodinated Contrast Media - Oral and] Allergy (Verified 02/28/17 23:41) Rash Penicillins Allergy (Verified 02/28/17 23:41) Hives Sulfa (Sulfonamide Antibiotics) Allergy (Verified 02/28/17 23:41) Hives aspirin Adverse Reaction (Verified 02/28/17 23:41) See Comments TINNITUS codeine Adverse Reaction (Verified 02/28/17 23:41) Hallucinating Estrogens Adverse Reaction (Verified 02/28/17 23:41) Cramping of the Muscles morphine Adverse Reaction (Verified 02/28/17 23:41) Hallucinating Oxycodone Adverse Reaction (Verified 02/28/17 23:41) Hallucinating tramadol Adverse Reaction (Verified 02/28/17 23:41) Hallucinating Procedures/tests Complete & Pending: Procedures Performed prior 72 hours Category Date Time Status ECG 12 lead ECG [ECG] Routine Y 03/07/17 03:41 Completed Date of admission: 03/06/17 09:59 Primary care physician: Shreyas Mera MD Discharging clinician: Anca Garcia Anticipated date of discharge: 03/09/17 - Patient Status Disposition: Transfer Inpatient Rehab Fac Condition: Fair Functional capacity at discharge: uses cane/walker Overall status at discharge: patient is progressing back to baseline - Discharge Instructions Follow Up With: Codie Workman PAC [Physician Drop Wire Builder] - Cedric Heller Jr, MD [Partnered Physician] - (WEB REQUEST MADE FOR IN TWO WEEKS.) Shreyas Mera MD [Primary Care Provider] - Additional Instructions: Discharge Instructions: Lumbar Please call [facility] ([phone]), your Primary Care Physician, or report to the ER if you have any of the following symptoms: Fever greater that 101.5, increased pain/redness/drainage/odor for your incision site or any other concerning symptoms. ACTIVITY * May Shower * No Tub Baths * No lifting greater than 10 pounds * No Smoking * No Swimming * No off Ground Activities (Running, Climbing, Ladders, Horseback Riding) * No Driving * Wear Back Brace when up walking if lumbar fusion done MEDICATIONS: Upon discharge resume your home medications. Take all the medications as prescribed. Take a stool softener if taking narcotic pain medications. Stool softeners are only effective if you drink enough fluids. Drink 6-8 glass of water or fluids a day, unless this is not allowed for another health problem. Despite using stool softeners, if you haven't had a bowel movement in 3 days, please switch to a gentle laxative. Gentle laxatives are sold over the counter. You should have a bowel movement within 24 hours, if not call the office. You will be discharged from the hospital with a prescription for pain medication. You are encouraged to decrease the use of narcotic pain medication as tolerated. Should you require a refill, please call the office. It is best to call 48-72 hours in advance of needing a prescription refill so you don't run out of medication. WOUND CARE: Remove Dressing Tomorrow. Leave incision open to air. Pat dry when you get out of the shower. FOLLOW-UP: Please follow up with your surgeon in the orthopedic clinic in 2 weeks from the day of surgery. References: [employer] (www.apta.org) - Diet and Activity Activity: as per physical therapy Diet: advance to your usual diet Interval History: Ms. Sanchez is a 86 year old female With multiple medical comorbidities including history of cerebrovascular accident, history of NM, COPD, CHF, hyperlipidemia, history of pacemaker placement 2, coronary artery disease and renal disease who had a recent fall and presented with complains of severe back pain. Due to her intractable pain she is now having difficulty mobilizing secondary to the pain. She was admitted for definitive management and workup revealed a vertebral compression fracture at L1. spine surgery was consulted. The patient has difficulty with narcotics and has severe pain. She is likely to do poorly with brace treatment. options were discussed,she is a potential candidate for kyphoplasty L1. she agreed to go with the procedure and she underwent kyphoplasty on 03/05/17. she did well post procedure, PT /OT recommended inpt. rehab and she is being dc in stable condition. Hospital course: Ms. Sanchez is a 86 year old female - Time Spent with Patient Total time spent providing and/or coordinating discharge services: - Constitutional Vitals: Temp Pulse Resp BP Pulse Ox 98.3 F 63 14 124/55 97 03/09/17 07:30 03/09/17 07:30 03/09/17 08:30 03/09/17 07:30 03/09/17 08:30 General appearance: Present: A&O X 3, answers questions appropriately Exam: neck- supple chest- b/l clear, cvs-s1 and s2, no mr//g abd-soft, no tender, bs are present ext- no edema neuro- no focal deficit - VTE Documentation of Mechanical Device: Intermittent pneumatic compression device
--- NOTE | 2017-03-09 10:41 | Physician Discharge Referral ---
ExtendedCare Referral Info Transfer To: formerly [facility], [facility]–1983 Provider in Charge: lucio flores Institutional Level of Care: Intermediate - MR - Diagnosis (1) Fall Status: Acute (2) Hypertension Status: Acute (3) Lumbar compression fracture Status: Acute (4) Osteopenia Status: Chronic (5) Atrial fibrillation Status: Acute (6) Congestive heart failure Status: Chronic (7) COPD (chronic obstructive pulmonary disease) Status: Chronic - Transfer Medications Prescriptions: Ibuprofen [Motrin] 400 mg PO Q6HR PRN #20 tablet PRN Reason: Mild Pain - 1st line GuaiFENesin ER [Mucinex] 600 mg PO BID 10 Days Lactobacillus [Culturelle] 1 each PO BID 30 Days Home Medications: Albuterol Sulfate [Albuterol Inhaler] 2 puff IH Q6HR PRN 08/08/15 [History] Budesonide/Formoterol 160/4.5 [Symbicort] 2 puff IH BIDR 08/08/15 [History] Clopidogrel [Plavix] 75 mg PO DAILY 08/08/15 [History] Ferrous Sulfate 325 mg PO DAILY 08/08/15 [History] Furosemide [Lasix] 40 mg PO BID 08/08/15 [History] Metoprolol [Lopressor] 100 mg PO BID 08/08/15 [History] Multivitamin/Iron/Folic Acid [Centrum Complete Multivit Tab] 1 tab PO DAILY 06/14 [History] Potassium Chloride 70 meq PO DAILY 08/08/15 [History] [place] Oil/[place]-3 Fatty Acids [Fish Oil 500 mg Softgel] 2,000 mg PO BID [History] Sucralfate [Carafate] 1 gm PO BID 08/08/15 [History] Ergocalciferol (VITAMIN D2) [Vitamin D2] 50,000 unit PO GIPSON 10/02/16 [History] Pantoprazole Sodium [Protonix] 20 mg PO DAILY 10/02/16 [History] Pravastatin Sodium [Pravachol] 20 mg PO DAILY 10/02/16 [History] Acetaminophen [Tylenol] 325 mg PO Q6HR PRN 03/01/17 [History] Acetylcysteine [O-[place]-i-Cysteine] 600 mg PO Q8H 03/01/17 [History] Ascorbate Calcium [Vitamin C] 500 mg PO DAILY 03/01/17 [History] Calcium Carbonate/Vitamin D3 [Calcium 600-Vit D3 400 Tablet] 1 tab PO DAILY 11/16 [History] Clotrimazole 1% CRM [Lotrimin 1%] 1 appl TP BID 03/01/17 [History] Docusate [Colace] 100 mg PO BID 03/01/17 [History] Donepezil [Aricept] 5 mg PO HS 03/01/17 [History] Glucosamn/Condroitn/C/Mn/[place] [Cvs Glucosamine Chondroitin Tb] 1 tab PO DAILY 03/01/17 [History] Ondansetron ODT [Zofran ODT] 4 mg SL Q8HR PRN 03/01/17 [History] Oxygen 1 each .ROUTE AD 03/01/17 [History] Sennosides [Senna] 17.2 mg PO HS 03/01/17 [History] Vitamin B Complex Vit C No.4 [Super B Complex] 1 tab PO DAILY 03/01/17 [History] Vitamin E (Dl,Tocopheryl Acet) [Vitamin E] 400 unit PO DAILY 03/01/17 [History] GuaiFENesin ER [Mucinex] 600 mg PO BID 10 Days 03/09/17 [Rx] Ibuprofen [Motrin] 400 mg PO Q6HR PRN #20 tablet 03/09/17 [Rx] Lactobacillus [Culturelle] 1 each PO BID 30 Days 03/09/17 [Rx] Allergies/Adverse Reactions: Allergies azithromycin Allergy (Verified 02/28/17 23:41) Hives Calcitonin Allergy (Verified 02/28/17 23:41) Rash Iodinated Contrast- Oral and IV Dye [Iodinated Contrast Media - Oral and] Allergy (Verified 02/28/17 23:41) Rash Penicillins Allergy (Verified 02/28/17 23:41) Hives Sulfa (Sulfonamide Antibiotics) Allergy (Verified 02/28/17 23:41) Hives aspirin Adverse Reaction (Verified 02/28/17 23:41) See Comments TINNITUS codeine Adverse Reaction (Verified 02/28/17 23:41) Hallucinating Estrogens Adverse Reaction (Verified 02/28/17 23:41) Cramping of the Muscles morphine Adverse Reaction (Verified 02/28/17 23:41) Hallucinating Oxycodone Adverse Reaction (Verified 02/28/17 23:41) Hallucinating tramadol Adverse Reaction (Verified 02/28/17 23:41) Hallucinating - Respiratory Orders Smoking Cessation: Smoking cessation has been advised. For more information, call the [place] Tobacco Quit Line at 4-459-RNKT-NOW. - Advance Directives Code Status: Full Code - Mobility Orders Chair, Ambulate - Rehabiliation Orders Rehab Potential: Fair Rehab Orders: Evaluation for Physical Therapy, Evaluation for Occupational Therapy - Diet Orders Regular CERTIFICATION: I certify that the transfer of the above named patient to an Extended Care Facility is necessary for the continuing treatment of the diagnosis listed. The above information is true and accurate reflection of patient's current condition. Confidential - Redisclosure prohibited without a patient's written consent.
[2017-03-09] MEDS ORDERED: Ketorolac 15 MG/ML VIAL IVP ONE (12:15)
[2017-03-09 12:22] VITALS: BP 111/67
== END 2017-03-09 13:27 | DRG 479 ==
LOC: 3NENU 23:37 → EMEROO 23:37 → 3NENU 03-01 05:11
PROVIDERS: ADMIT Internal Medicine; ATTEND Internal Medicine Endocrinology, Diabetes & Metabolism